=== PATIENT | female | born 1955 | race Caucasian/White ===

== ENCOUNTER 2025-03-05 08:14 | Emergency (ER) | payer OTHER ==
--- NOTE | 2025-03-05 09:28 | RAD REPORT ---
EXAMINATION: CT LUMBAR SPINE WITHOUT CONTRAST CLINICAL INDICATION: Female, 70 years old. PAIN TECHNIQUE: Axial CT images were obtained through the lumbar spine in soft tissue and bone windows wit hout intravenous contrast. Coronal and Sagittal reformatted images were created from the data set. One or more of the following dose reduction techniques were used: Automated exposure control, adjustm ent of the mA and/ or kV according to patient size, and/or iterative reconstruction. Unless otherwise specified, incidental findings do not require dedicated imaging follow-up. COMPARISON: CT abdomen and pelvis 06/11/2024 FINDINGS: For purposes of this dictation, it is assumed that there are 5 non rib-bearing lumbar type vertebrae, and the most caudal fully segmented lumbar vertebra is labeled L5. ALIGNMENT: The lumbar spine demonstrates normal alignment without scoliosis or spondylolisthesis. BONES: Vertebral body heights are preserved. No aggressive osseous lesions. DISCS: Intervertebral disc space heights are maintained. LEVELS: No significant spinal canal stenosis. Mild disc bulges at L3-4 through L5-S1, contributing to mild bilateral neural foraminal narrowing at L4-5. SOFT TISSUE: Cholesterol containing 2.2 cm gallstone. Mild distal colonic diverticulosis with sequela e of partial distal colon resection. No other soft tissue abnormalities. IMPRESSION: No acute lumbar spine abnormalities. Mild discogenic changes most notably at L4-5 contributing to mil d bilateral neural foraminal narrowing. Incidentally noted 2.2 cm cluster containing gallstone.
[2025-03-05 09:37] LABS: Absolute Eosinophils 0.1 K/uL (0-0.5); Absolute Lymphocytes (CBC) 1.8 K/uL (0.7-4.9); Absolute Monocytes 0.7 K/uL (0.1-1.3); Absolute Neutrophil 6.2 K/uL (1.8-8.0); Basophils % 0.5 % (0-1.3); Eosinophils % 1.6 % (0-4.4); Hematocrit 48.3 % (36.0-45.0); Hemoglobin 16.5 g/dL (12.0-15.0); Lymphocytes % 20.2 % (15.3-44.8); MCH 34.7 pg (27.0-35.0); MCHC 34.1 g/dL (32.0-36.0); MCV 101.6 fL (80-100); MPV 12.2 fL (7.6-11.3); Monocytes % 7.7 % (3.3-12.3); Nucleated Red Blood Cells % 0.1 % (0-0); Platelets 41 thou/uL (152-406); RBC Red Blood Cell Count 4.75 M/uL (3.86-4.86); Red Cell Distribution Width 14.1 % (12.1-15.2)
[2025-03-05 09:39] LABS: Albumin 3.4 g/dL (3.4-5.0); Albumin/Globulin Ratio 0.9 (1.1-1.8); Anion Gap 8.8 mEq/L (5.0-15.0); Bilirubin Total 0.9 mg/dL (0.2-1.0); Globulin 3.6 g/dL (2.3-3.5); Potassium 3.8 mEq/L (3.5-5.1)
[2025-03-05] MEDS ORDERED: dexAMETHasone 10 MG/ML VIAL ONE (09:46)
[2025-03-05] MEDS ORDERED: ONDANSETRON 4 MG/2 ML VIAL ONE (09:46)
[2025-03-05] MEDS ORDERED: KETOROLAC 30 MG/ML INJ ONE (09:46)
[2025-03-05] MEDS ORDERED: DIAZEPAM 5 MG TABLET ONE (09:46)
[2025-03-05] MEDS ORDERED: NA CHLORIDE 0.9% 1,000 ML ONE (09:46)
--- NOTE | 2025-03-05 09:57 | EDPHYS ---
Physician Documentation [facility] Name: Ana Steward Age: 70 yrs Sex: Female : 1955 Arrival Date: 03/05/2025 Time: 08:14 Bed 19 Private MD: ED Physician Gavino Boyd HPI: 03/05 09:51 This 70 yrs old Female presents to ER via Ambulatory with complaints of lower juanita back pain, lower thoracic. 09:51 The patient presents with pain that is acute. The symptoms are located in the low back, juanita lumbar area. Onset: The symptoms/episode began/occurred 3 day(s) ago. The pain does not radiate. Associated signs and symptoms: The patient has no apparent associated signs or symptoms. The problem was sustained when lifting boxes, heavy object. Modifying factors: The patient symptoms are alleviated by remaining still. Severity of symptoms: At their worst the symptoms were moderate, in the emergency department the symptoms are unchanged. The patient has not experienced similar symptoms in the past. Historical: - Allergies: 08:30 No Known Allergies; ll1 - PMHx: 08:30 Depression; Diverticulitis; ll1 - PSHx: 08:30 None; ll1 - Immunization history:: Adult Immunizations up to date. - Infectious Disease History:: Denies. - Social history:: Smoking status: Patient denies any tobacco usage or history of. - Family history:: not pertinent. ROS: 09:51 Constitutional: Negative for fever, chills, and weight loss, Eyes: Negative for injury, juanita pain, redness, and discharge, ENT: Negative for injury, pain, and discharge, Neck: Negative for injury, pain, and swelling, Cardiovascular: Negative for chest pain, palpitations, and edema, Respiratory: Negative for shortness of breath, cough, wheezing, and pleuritic chest pain, Abdomen/GI: Negative for abdominal pain, nausea, vomiting, diarrhea, and constipation, : Negative for injury, bleeding, discharge, and swelling, MS/Extremity: Negative for injury and deformity, Skin: Negative for injury, rash, and discoloration, Neuro: Negative for headache, weakness, numbness, tingling, and seizure, Psych: Negative for depression, anxiety, suicide ideation, homicidal ideation, and hallucinations, Allergy/Immunology: Negative for hives, rash, and allergies, Endocrine: Negative for neck swelling, polydipsia, polyuria, polyphagia, and marked weight changes, Hematologic/Lymphatic: Negative for swollen nodes, abnormal bleeding, and unusual bruising, 09:51 Back: Positive for injury or acute deformity, pain at rest, pain with movement, of the lumbar area, Exam: :51 Constitutional: This is a well developed, well nourished patient who is awake, alert, juanita and in no acute distress. Head/Face: Normocephalic, atraumatic. Eyes: Pupils equal round and reactive to light, extra-ocular motions intact. Lids and lashes normal. Conjunctiva and sclera are non-icteric and not injected. Cornea within normal limits. Periorbital areas with no swelling, redness, or edema. ENT: Nares patent. No nasal discharge, no septal abnormalities noted. Tympanic membranes are normal and external auditory canals are clear. Oropharynx with no redness, swelling, or masses, exudates, or evidence of obstruction, uvula midline. Mucous membranes moist. Neck: Trachea midline, no thyromegaly or masses palpated, and no cervical lymphadenopathy. Supple, full range of motion without nuchal rigidity, or vertebral point tenderness. No Meningismus. Chest/axilla: Normal chest wall appearance and motion. Nontender with no deformity. No lesions are appreciated. Cardiovascular: Regular rate and rhythm with a normal S1 and S2. No gallops, murmurs, or rubs. Normal PMI, no JVD. No pulse deficits. Respiratory: Lungs have equal breath sounds bilaterally, clear to auscultation and percussion. No rales, rhonchi or wheezes noted. No increased work of breathing, no retractions or nasal flaring. Abdomen/GI: Soft, non-tender, with normal bowel sounds. No distension or tympany. No guarding or rebound. No evidence of tenderness throughout. Female : Normal external genitalia. Skin: Warm, dry with normal turgor. Normal color with no rashes, no lesions, and no evidence of cellulitis. MS/ Extremity: Pulses equal, no cyanosis. Neurovascular intact. Full, normal range of motion., bilateral aka Neuro: Awake and alert, GCS 15, oriented to person, place, time, and situation. Cranial nerves II-XII grossly intact. Motor strength 5/5 in all extremities. Sensory grossly intact. Cerebellar exam normal. Normal gait. Psych: Awake, alert, with orientation to person, place and time. Behavior, mood, and affect are within normal limits. 09:51 Back: pain, that is moderate, ROM is painful, with flexion, with extension, normal spinal alignment noted, CVA tenderness, is absent, muscle spasm, is appreciated in the lumbar area, left low back, left mid back, right mid back and right low back, Vital Signs: 08:29 BP 138 / 73; Pulse 94; Resp 17; Temp 98.6; Pulse Ox 95% on R/A; Weight 79.38 kg; Height ll1 5 ft. 7 in. ; Pain 08/22; 08:29 Body Mass Index 27.41 (79.38 kg, 170.18 cm) ll1 08:29 Pain Scale: Adult ll1 MDM: 08:27 Medical Screening Exam initiated juanita 09:53 Differential diagnosis: chronic back pain, Fatigue Fracture Osteoarthritis Osteoporosis juanita Scoliosis spinal injury, sprain, vertebral fracture. Data reviewed: vital signs, nurses notes, lab test result(s), radiologic studies, CT scan. Consideration of Admission/Observation Escalation of care including admission/observation considered. I considered the following discharge prescriptions or medication management in the emergency department Medications were administered in the Emergency Department. See MAR. Independent interpretation of the following test(s) in the Emergency Department CT Scan: My interpretation is ct lumbar. Test considered but Not performed: MRI: no mri spine. Historians other than the Patient: pt well informed. Care significantly affected by the following chronic conditions: depression, diverticulitis. 03/05 08:31 Order name: CBC with Diff [facility] 03/05 08:31 Order name: Comprehensive Metabolic Panel; Complete Time: :47 [facility] 03/05 09:44 Order name: CBC Smear Scan [facility] 03/05 08:31 Order name: CT Lumbar Spine Wo Con; Complete Time: :47 [facility] Administered Medications: 10:02 Drug: NS 0.9% IV 1000 ml IV at 1000 ml once; to be given as a bolus over 60 minutes iw Route: IV; Rate: 1000 ml; Site: left antecubital; 10:42 Follow up: IV Status: Completed infusion iw 10:02 Drug: Ketorolac IVP 30 mg IVP once Route: IVP; Site: left antecubital; iw 10:02 Drug: Ondansetron IVP 4 mg IVP once; over 2 minutes Route: IVP; Site: left antecubital; iw 10:02 Drug: Diazepam PO 10 mg PO once Route: PO; iw 10:02 Drug: Decadron - Dexamethasone IVP 10 mg IVP once Route: IVP; Site: left antecubital; iw 10:40 Follow up: Response: No adverse reaction iw 10:03 Not Given (Patient Refused): fentanyl (pf)50 mcg IVP once iw 10:03 Not Given (Patient Refused): ondansetron 4 mg IVP once; over 2 minutes iw Disposition Summary: 03/05/25 09:56 Discharge Ordered Notes: Location: Home juanita Problem: new juanita Symptoms: have improved juanita Condition: Stable juanita Diagnosis - Low back pain juanita - Strain of muscle and tendon of back wall of thorax juanita Followup: juanita - With: Private Physician - When: 2 - 3 days - Reason: Recheck today's complaints, Continuance of care, Re-evaluation by your physician Followup: junaita - With: Salty Clinton MD - When: 2 - 3 days - Reason: Recheck today's complaints, Re-evaluation by your physician Discharge Instructions: - Discharge Summary Sheet juanita - Acute Back Pain, Adult juanita - Musculoskeletal Pain juanita - Back Injury Prevention, [id number] [facility] Forms: - Medication Reconciliation Form [facility] - Antibiotic Education juanita - Prescription Opioid Use juanita - Patient Portal Instructions [facility] - Leadership Thank You Letter [facility] Prescriptions: - diclofenac sodium 50 mg Oral tablet, delayed release (enteric coated) - take 1 tablet ORAL route 3 times per day; 21 tablet; Refills: 0, Product [facility] Selection Permitted - methocarbamol 750 mg Oral tablet - take 1 tablet ORAL route every 6 hours; 28 tablet; Refills: 0, Product [facility] Selection Permitted - Tylenol-Codeine #3 300mg-30mg Oral tablet - take 2 tablets ORAL route every 6 hours As needed; 20 tablet; Refills: 0, [facility] Product Selection Permitted - Dexamethasone 4mg Oral tablet - take 1 tablet ORAL route daily for 4 days; 4 tablet; Refills: 0, Product [facility] Selection Permitted Signatures: Dispatcher [employer] Gavino Harris MD MD cha Williams, Irene, RN RN iw Raza Thompson RN RN ll1 Corrections: (The following items were deleted from the chart) 08:31 08:31 CBC+H.LAB.BRZ ordered. EDMS EDMS 08:31 COMPREHENSIVE METABOLIC PANEL+C.LAB.BRZ ordered. EDMS EDMS 08:31 Urinalysis+U.LAB.BRZ ordered. EDMS EDMS 08:31 Spine Lumbar Wo Con+CT.RAD.BRZ ordered. EDMS EDMS
--- NOTE | 2025-03-05 09:57 | ER ---
Nurse's Notes [facility] Name: Ana Steward Age: 70 yrs Sex: Female : 1955 Arrival Date: 03/05/2025 Time: 08:14 Bed 19 Private MD: Diagnosis: Low back pain;Strain of muscle and tendon of back wall of thorax Presentation: 03/05 08:29 Chief complaint: Patient states: Back pain since Monday. Coronavirus screen: Client ll1 denies travel out of the [place] in the last 14 days. At this time, the client does not indicate any symptoms associated with coronavirus-19. Ebola Screen: Patient denies travel to an Ebola-affected area in the 21 days before illness onset. Initial Sepsis Screen: Does the patient meet any 2 criteria? No. Patient's initial sepsis screen is negative. Does the patient have a suspected source of infection? No. Patient's initial sepsis screen is negative. Risk Assessment: Do you want to hurt yourself or someone else? Patient reports no desire to harm self or others. Onset of symptoms was March 03, 2025. 08:29 Method Of Arrival: Ambulatory ll1 08:29 Acuity: DIDIER 4 ll1 Triage Assessment: 08:31 General: Appears uncomfortable, Behavior is calm, cooperative, appropriate for age. ll1 Pain: Complains of pain in back Pain currently is 10 out of 10 on a pain scale. Quality of pain is described as aching, sharp. Musculoskeletal: Reports pain in back. Historical: - Allergies: 08:30 No Known Allergies; ll1 - PMHx: 08:30 Depression; Diverticulitis; ll1 - PSHx: 08:30 None; ll1 - Immunization history:: Adult Immunizations up to date. - Infectious Disease History:: Denies. - Social history:: Smoking status: Patient denies any tobacco usage or history of. - Family history:: not pertinent. Screenin:24 [facility] ED Fall Risk Assessment (Adult) History of falling in the last 3 months, iw including since admission Yes- single mechanical fall (1 pt) Confusion or Disorientation No (0 pts) Intoxicated or Sedated No (0 pts) Impaired Gait No (0 pts) Mobility Assist Device Used No (0 pt) Altered Elimination No (0 pt) Score/Fall Risk Level 0 - 2 = Low Risk Oriented to surroundings, Maintained a safe environment. Abuse screen: Denies threats or abuse. Denies injuries from another. Nutritional screening: No deficits noted. Tuberculosis screening: No symptoms or risk factors identified. Assessment: 08:30 General: Appears in no apparent distress. Behavior is calm, cooperative. Pain: iw Complains of pain in left subscapular area, right subscapular area, left mid back and right mid back. Neuro: Level of Consciousness is awake, alert, obeys commands, Oriented to person, place, time, situation, Moves all extremities. Cardiovascular: Patient's skin is warm and dry. Respiratory: Respiratory effort is even, unlabored, Respiratory pattern is regular, symmetrical. GI: Abdomen is flat. Derm: Skin is intact, is healthy with good turgor. Musculoskeletal: Range of motion: intact in all extremities. 09:30 Reassessment: Patient appears in no apparent distress at this time. Patient and/or iw family updated on plan of care and expected duration. Pain level reassessed. Patient is alert, oriented x 3, equal unlabored respirations, skin warm/dry/pink. Vital Signs: 08:29 BP 138 / 73; Pulse 94; Resp 17; Temp 98.6; Pulse Ox 95% on R/A; Weight 79.38 kg; Height ll1 5 ft. 7 in. ; Pain 10/10; 08:29 Body Mass Index 27.41 (79.38 kg, 170.18 cm) ll1 08:29 Pain Scale: Adult ll1 ED Course: 08:18 Patient arrived in ED. kb3 08:27 Gavino Boyd MD is Attending Physician. juanita 08:30 Triage completed. ll1 08:30 Patient has correct armband on for positive identification. Provided Education on: . iw 08:31 Arm band placed on Patient placed in an exam room, on a stretcher. ll1 08:42 CT Lumbar Spine Wo Con In Process Unspecified. EDMS 09:07 Inserted saline lock: 20 gauge in left antecubital area, using aseptic technique. ty Flushed with 10 mL NS. 09:42 Vanessa Rodney, JAZIEL is Primary Nurse. iw 09:56 Salty Clinton MD is Referral Physician. juanita 10:24 No provider procedures requiring assistance completed. IV discontinued, intact, iw bleeding controlled, No redness/swelling at site. Pressure dressing applied. Administered Medications: 10: Drug: NS 0.9% IV 1000 ml IV at 1000 ml once; to be given as a bolus over 60 minutes iw Route: IV; Rate: 1000 ml; Site: left antecubital; 10:42 Follow up: IV Status: Completed infusion iw 10: Drug: Ketorolac IVP 30 mg IVP once Route: IVP; Site: left antecubital; iw 10:02 Drug: Ondansetron IVP 4 mg IVP once; over 2 minutes Route: IVP; Site: left antecubital; iw 10: Drug: Diazepam PO 10 mg PO once Route: PO; iw 10: Drug: Decadron - Dexamethasone IVP 10 mg IVP once Route: IVP; Site: left antecubital; iw 10:40 Follow up: Response: No adverse reaction iw 10:03 Not Given (Patient Refused): fentanyl (pf)50 mcg IVP once iw 10:03 Not Given (Patient Refused): ondansetron 4 mg IVP once; over 2 minutes iw Medication: 08:30 VIS not applicable for this client. iw Outcome: 09:56 Discharge ordered by MD. grant 10:25 Discharged to home ambulatory, iw 10:25 Condition: good 10:25 Discharge instructions given to patient, Instructed on discharge instructions, follow up and referral plans. medication usage, Demonstrated understanding of instructions, follow-up care, medications, Prescriptions given X 4, 10:25 Patient left the ED. iw Signatures: Dispatcher [employer] Gavino Harris MD MD cha Williams, Irene, RN RN iw Raza Thompson RN RN ll1 Cara Mckeon RN RN kb3 Berny Sharp
[2025-03-05 10:32] VITALS: BP 138/73; TEMP 98.6; O2SAT 95
[2025-03-05 10:43] LABS: Blood Morphology Comment NOTED (NOT SEEN); Macrocytosis 1+; Platelet Estimate DECR; Platelets, Giant PRESENT; White Blood Cell Scan OK (OK)
== END 2025-03-05 10:25 | disposition home or self-care (01) ==
LOC: ER 08:14
DX: S29.012A Strain of muscle and tendon of back wall of thorax, initial encounter (principal)
CPT/HCPCS: 96361; 85025; 36415; 80053; 72131; 96375; 96374; 99284; J1100; J2405; J7030

== ENCOUNTER 2025-06-30 10:56 | Day surgery (SDC) | payer OTHER ==
[2025-06-26 08:48] LABS: Absolute Lymphocytes (CBC) 1.0 K/uL (0.7-4.9); Hematocrit 39.1 % (36.0-45.0); Hemoglobin 13.2 g/dL (12.0-15.0); MCH 33.4 pg (27.0-35.0); MCHC 33.9 g/dL (32.0-36.0); MCV 98.5 fL (80-100); MPV 12.5 fL (7.6-11.3); Nucleated RBC Absolute Count 0.0 (0-0); Nucleated Red Blood Cells % 0.0 % (0-0); RBC Red Blood Cell Count 3.97 M/uL (3.86-4.86); White Blood Count 7.80 thou/uL (4.3-10.9)
[2025-06-26 08:57] LABS: PT Prothrombin Time 21.9 SECONDS (10-13.0); PTT, Activated Partial Thromb 40.2 SECONDS (27.2-37.4); Protime INR 1.98
[2025-06-26 09:02] LABS: Anion Gap 8.1 mEq/L (5.0-15.0); BUN Blood Urea Nitrogen 9.0 mg/dL (7-18); Glucose Level 103.0 mg/dL (74-106); Potassium 4.1 mEq/L (3.5-5.1)
[2025-06-26 09:57] LABS: Blood Morphology Comment NOT SEEN (NOT SEEN); Platelets, Giant NOTED; White Blood Cell Scan OK (OK)
[2025-06-30] MEDS ORDERED: NA CHLORIDE 0.9% 500 ML ONE (10:58)
[2025-06-30] MEDS ORDERED: VERAPAMIL HCL 10 MG/4 ML VIAL IV ONE (11:33)
[2025-06-30] MEDS ORDERED: HEPA 1000U/500MLS 2,000 UNIT/1,000 ML BAG IV ONE (11:33)
[2025-06-30] MEDS ORDERED: ATROPINE SULF 1 MG/10 ML SYR IV ONE (11:33)
[2025-06-30] MEDS ORDERED: HEPARIN 10,000 UNIT/10 ML VIAL IV ONE (11:33)
[2025-06-30] MEDS ORDERED: LIDOCAINE 1% 20 ML MDV ONE (11:33)
[2025-06-30] MEDS ORDERED: HEPARIN 5000 UNIT/ML 1 ML VIAL ONE (11:33)
[2025-06-30] MEDS ORDERED: MIDAZOLAM HCL 2 MG/2 ML INJ ONE (11:37)
[2025-06-30] MEDS ORDERED: FENTANYL CITR 100 MCG/2 ML ONE (11:37)
[2025-06-30 13:18] VITALS: TEMP 98.2
--- NOTE | 2025-06-30 14:24 | OP ---
Date of Procedure: 06/30/2025 Surgeon: VICKI SARMIENTO Procedures Performed: 1. Selective coronary angiogram. 2. Left heart catheterization. Indication: Abnormal stress test. Access: Right radial artery 6-Cymraes closed with TR band. Complications: None. Bleeding: Less than 50 mL. Total Sedation Time: 45 minutes, used fentanyl and Versed. Description Of Procedure: After risks, benefits, and alternatives were explained, the patient agreed to procedure and signed informed consent. [facility]pped and draped in sterile fashion. Then, I accessed right radial artery using pediatric micropuncture kit, ultrasound guidance, placed a 6-Cymraes slender sheath, took 5-Cymraes [place] 4.0 cat heter over a J-wire into the aortic root across the aortic valve, measured the LVEDP. Pullback did n ot record any gradient. Then, recorded left main, took standard views, and then in the RCA, took sta ndard views and then removed the catheter and the sheath, placed TR band with good hemostasis. Findings: 1. Left main is normal. 2. LAD; ostial 50% stenosis and then mid after diagonal 2 takeoff, there is a long 50% stenosis. The rest of the LAD is normal. Normal diagonal branches. 3. Left circumflex; large vessel, normal, free of disease, normal OM branches. 4. RCA; it is a large vessel with proximal 40%. Rest of it is normal. 5. LVEDP is normal at 10 mmHg. Conclusion: Moderate coronary artery disease. Recommendation: Medical management. Repeat cardiac PET stress test in a year. SR/MODL Voice ID: [id number] Report ID: [id number]
[2025-06-30 14:48] VITALS: BP 160/65; O2SAT 92
== END 2025-06-30 14:30 | disposition home or self-care (01) ==
LOC: CCL 10:56
PROVIDERS: ATTEND Internal Medicine
DX: I25.10 Atherosclerotic heart disease of native coronary artery without angina pectoris (principal); I34.0 Nonrheumatic mitral (valve) insufficiency; I11.0 Hypertensive heart disease with heart failure; I50.9 Heart failure, unspecified; Z87.891 Personal history of nicotine dependence; Z79.01 Long term (current) use of anticoagulants; Z79.899 Other long term (current) drug therapy
CPT/HCPCS: 93005; 85025; 80048; 36415; 85610; 85730; 93458; 76937; C1893; Q9966; J1644 ×2; J2003; J2250; J3010; J7040; 99152; 99153; J0461

== ENCOUNTER 2025-08-09 18:52 | Inpatient (IN) | payer OTHER ==
[2025-08-09] MEDS ORDERED: NA CHLORIDE 0.9% 1,000 ML ONE (19:32)
[2025-08-09] MEDS ORDERED: ONDANSETRON 4 MG/2 ML VIAL ONE ×2 (19:32→21:01)
[2025-08-09] MEDS ORDERED: LORazepam 2 MG/ML VIAL ONE (19:47)
[2025-08-09 19:55] LABS: Absolute Lymphocytes (CBC) 0.8 K/uL (0.7-4.9); Hematocrit 39.9 % (36.0-45.0); Hemoglobin 13.5 g/dL (12.0-15.0); MCH 31.0 pg (27.0-35.0); MCHC 33.7 g/dL (32.0-36.0); MCV 91.8 fL (80-100); MPV 15.9 fL (7.6-11.3); Nucleated RBC Absolute Count 0.0 (0-0); Nucleated Red Blood Cells % 0.0 % (0-0); RBC Red Blood Cell Count 4.35 M/uL (3.86-4.86); White Blood Count 8.10 thou/uL (4.3-10.9)
[2025-08-09 19:58] LABS: Blood Morphology Comment NOT SEEN (NOT SEEN); White Blood Cell Scan OK (OK)
[2025-08-09 20:14] LABS: ALT/SGPT 19.0 U/L (13-56); AST/SGOT 14.0 U/L (15-37); Albumin 3.8 g/dL (3.4-5.0); Albumin/Globulin Ratio 1.0 (1.1-1.8); Alkaline Phosphatase 60.0 U/L (45-117); Anion Gap 9.7 mEq/L (5.0-15.0); BUN Blood Urea Nitrogen 13.0 mg/dL (7-18); Globulin 4.0 g/dL (2.3-3.5); Glucose Level 128.0 mg/dL (74-106); Lipase 29.0 U/L (13-75); Potassium 3.7 mEq/L (3.5-5.1)
[2025-08-09] MEDS ORDERED: PROMETHAZINE INJ 25 MG/ML AMP ONE (22:27)
--- NOTE | 2025-08-09 22:53 | EDPHYS ---
Physician Documentation [facility] Name: Ana Steward Age: 70 yrs Sex: Female : 1955 Arrival Date: 08/09/2025 Time: 18:52 Bed 14 Private MD: YARIEL HYLTON ED Physician Deonte Hartley HPI: 08/09 23:21 This 70 yrs old Female presents to ER via Ambulatory with complaints of Nausea/Vomiting.kb 23:21 Patient is a 70-year-old female who presents for nausea and vomiting that started this kb morning. Patient states she has been unable to tolerate anything by mouth. Denies abdominal pain, diarrhea, fever. Historical: - Allergies: 19:10 No Known Allergies; ha1 - Home Meds: 19:10 Eliquis oral [Active]; ha1 - PMHx: 19:10 Atrial fibrillation; Depression; Diverticulitis; ha1 - Immunization history:: Adult Immunizations up to date. - Infectious Disease History:: Denies. - Social history:: Smoking status: unknown. ROS: 23:21 Constitutional: As per HPI kb Exam: 23:21 Constitutional: This is a well developed, well nourished patient who is awake, alert, kb and in no acute distress. Head/Face: Normocephalic, atraumatic. ENT: Moist Mucous membranes Cardiovascular: Regular rate Respiratory: Respirations even and unlabored. No increased work of breathing. Talking in full sentences Abdomen/GI: Soft, non-tender. No distention Skin: Warm, dry with normal turgor. Normal color. MS/ Extremity: Pulses equal, no cyanosis. Neurovascular intact. Full, normal range of motion. Neuro: Awake and alert, GCS 15, oriented to person, place, time, and situation. Vital Signs: 19:00 BP 179 / 102; Pulse 81; Resp 18 S; Temp 97.1(T); Pulse Ox 95% on R/A; Weight 61.23 kg; ha1 Height 5 ft. 7 in. ; Pain 0/10; 19:30 BP 175 / 92; Pulse 75; Resp 20; Pulse Ox 100% on R/A; kj2 19:52 BP 125 / 92; Pulse 75; Resp 18; Pulse Ox 100% on R/A; kj2 20:38 BP 169 / 85; Pulse 75; Resp 20; Pulse Ox 97% ; kj2 21:13 BP 168 / 83; Pulse 83; Resp 20; Pulse Ox 98% on R/A; kj2 22:13 BP 141 / 95; Pulse 81; Resp 18; Pulse Ox 95% on R/A; kj2 22:22 BP 162 / 79; Pulse 88; Resp 20; Pulse Ox 96% on R/A; kj2 23:30 BP 158 / 81; Pulse 83; Resp 20; Pulse Ox 98% on 2 lpm NC; kj2 08/10 00:59 BP 159 / 93; Pulse 87; Resp 19; Pulse Ox 98% on 2 lpm NC; cp4 08/09 19:00 Body Mass Index 21.14 (61.23 kg, 170.18 cm) ha1 08/09 19:00 Pain Scale: Adult ha1 MDM: 08/09 19:00 Medical Screening Exam initiated kb 22:52 Data reviewed: vital signs, nurses notes. Consideration of Admission/Observation kb Patient was admitted/placed on observation. Escalation of care including admission/observation considered. Management of patient was discussed with the following: Hospitalist: DONTRELL Lynn accepts pt for admission under Dr Hartley. 23:20 Differential diagnosis: Nonspecific abd pain, gastritis, viral gastroenteritis, kb Dehydration, abnormal electrolytes, bowel obstruction. Test considered but Not performed: CT: CT scan abdomen pelvis considered and recommended multiple times, patient refused. Counseling: I had a detailed discussion with the patient and/or guardian regarding the historical points, exam findings, and any diagnostic results supporting the discharge/admit diagnosis, lab results, the need for further work-up and treatment in the hospital. Refusal of service: The patient/guardian displays adequate decision making capability and despite a detailed discussion of alternatives, benefits, risks, and consequences refuses: CT Scan. ED course: Patient still vomiting after interventions, will admit for intractable vomiting. 08/09 19:05 Order name: CBC with Diff; Complete Time: 19:58 kb 08/09 19:05 Order name: CMP; Complete Time: 20:19 kb 08/09 19:05 Order name: Lipase; Complete Time: 20:19 kb 08/09 19:58 Order name: CBC Smear Scan; Complete Time: 19:58 EDMS 08/09 23:59 Order name: CBC with Automated Diff EDMS 08/09 23:59 Order name: CBC with Automated Diff EDMS 08/09 23:59 Order name: CBC with Automated Diff EDMS 08/09 23:59 Order name: Comprehensive Metabolic Panel EDMS 08/09 23:59 Order name: Comprehensive Metabolic Panel EDMS 08/09 23:59 Order name: Comprehensive Metabolic Panel EDMS 08/09 23:59 Order name: Magnesium EDMS 08/09 23:59 Order name: Magnesium EDMS 08/09 23:59 Order name: Magnesium EDMS 08/09 19:05 Order name: IV Saline Lock; Complete Time: 19:39 kb 08/09 19:05 Order name: Labs collected and sent; Complete Time: 19:39 kb Administered Medications: 19:38 Drug: Ondansetron IVP 4 mg IVP once; over 2 minutes Route: IVP; Site: right antecubital;kj2 21:08 Follow up: Response: No adverse reaction kj2 19:38 Drug: NS 0.9% IV 1000 ml IV at 1 bolus Per protocol; to be given as a bolus over 60 kj2 minutes Route: IV; Rate: 1 bolus; Site: right antecubital; 21:07 Follow up: IV Status: Completed infusion; IV Intake: 1000ml kj2 19:50 Drug: Ativan IVP 0.5 mg IVP once Route: IVP; Site: right antecubital; kj2 21:07 Follow up: Response: No adverse reaction kj2 21:13 Drug: Ondansetron IVP 4 mg IVP once; over 2 minutes Route: IVP; Site: right antecubital;kj2 22:00 Follow up: Response: No adverse reaction kj2 22:32 Drug: Promethazine IM 25 mg IM once Route: IM; Site: left deltoid; kj2 08/10 00:00 Follow up: Response: No adverse reaction kj2 Disposition Summary: 08/09/25 22:52 Hospitalization Ordered Notes: Hospitalization Status: Observation kb Provider: Jarrell Hartley Location: Telemetry/MedSurg (observation) kb Condition: Stable kb Problem: new kb Symptoms: are unchanged kb Bed/Room Type: Standard kb Room Assignment: 422(08/09/25 23:57) rv1 Diagnosis - Nausea with vomiting, unspecified - Intractable kb - Thrombocytopenia, unspecified kb Forms: - Medication Reconciliation Form kb - SBAR form kb - Leadership Thank You Letter kb Addendum: 08/14/2025 07:07 Co-signature as Attending Physician, Deonte Hartley MD I reviewed the patient's care r n provided by the Advanced Practice Provider and agree with the diagnosis and treatment plan. Signatures: Dispatcher [employer] EDRenuka Guerrero, CHUTE PULLER-C CHUTE PULLER-Ckb Deonte Hartley MD MD rn Ayala, Heidy RN RN ha1 Caro Schwab rv1 Edda Smart RN RN kj2 Corrections: (The following items were deleted from the chart) 08/09 19:06 19:06 CBC+H.LAB.BRZ ordered. EDMS EDMS 19:06 19:06 COMPREHENSIVE METABOLIC PANEL+C.LAB.BRZ ordered. EDMS EDMS 19:06 19:06 LIPASE+C.LAB.BRZ ordered. EDMS EDMS 23:57 22:52 kb rv1
--- NOTE | 2025-08-09 22:53 | ER ---
Nurse's Notes [facility] Name: Ana Steward Age: 70 yrs Sex: Female : 1955 Arrival Date: 08/09/2025 Time: 18:52 Bed 14 Private MD: YARIEL HYLTON Diagnosis: Nausea with vomiting, unspecified-Intractable;Thrombocytopenia, unspecified Presentation: 08/09 19:00 Chief complaint: Patient states: NAUSEA AND VOMITING SINCE THIS MORNING. DENIES PAIN. ha1 19:00 Coronavirus screen: Client denies travel out of the [place] in the last 14 days. Ebola ha1 Screen: No symptoms or risks identified at this time. Initial Sepsis Screen: Does the patient meet any 2 criteria? No. Patient's initial sepsis screen is negative. Does the patient have a suspected source of infection? No. Patient's initial sepsis screen is negative. Risk Assessment: Do you want to hurt yourself or someone else? Patient reports no desire to harm self or others. Onset of symptoms was August 09, 2025. 19:00 Method Of Arrival: Ambulatory ha1 19:00 Acuity: DIDIER 3 ha1 Triage Assessment: 19:10 General: Appears uncomfortable, Behavior is cooperative. Pain: Denies pain. Neuro: ha1 Level of Consciousness is awake, alert, obeys commands, Oriented to person, place, time, situation. Cardiovascular: Capillary refill < 3 seconds Patient's skin is warm and dry. Respiratory: Airway is patent Respiratory effort is even, unlabored, Respiratory pattern is regular, symmetrical. GI: Abdomen is round non-distended, Reports nausea, vomiting. Historical: - Allergies: 19:10 No Known Allergies; ha1 - Home Meds: 19:10 Eliquis oral [Active]; ha1 - PMHx: 19:10 Atrial fibrillation; Depression; Diverticulitis; ha1 - Immunization history:: Adult Immunizations up to date. - Infectious Disease History:: Denies. - Social history:: Smoking status: unknown. Screenin:20 [facility] ED Fall Risk Assessment (Adult) History of falling in the last 3 months, kj2 including since admission No falls in past 3 months (0 pts) Confusion or Disorientation No (0 pts) Intoxicated or Sedated No (0 pts) Impaired Gait No (0 pts) Mobility Assist Device Used No (0 pt) Altered Elimination No (0 pt) Score/Fall Risk Level 0 - 2 = Low Risk Maintained a safe environment, Hourly rounding (assess needs \T\ fall precautionary measures) done. Abuse screen: Denies threats or abuse. Denies injuries from another. Nutritional screening: No deficits noted. Tuberculosis screening: No symptoms or risk factors identified. Assessment: 19:10 General: Appears in no apparent distress. Behavior is cooperative. Pain: Denies pain. kj2 Neuro: Level of Consciousness is awake, alert, obeys commands, Oriented to person, place, time, situation. Cardiovascular: Patient's skin is warm and dry. Respiratory: Airway is patent Respiratory effort is unlabored. GI: Reports nausea, vomiting. : No signs and/or symptoms were reported regarding the genitourinary system. 19:55 Reassessment: Patient appears in no apparent distress at this time. Patient and/or kj2 family updated on plan of care and expected duration. Pain level reassessed. 20:39 Reassessment: Patient appears in no apparent distress at this time. Patient and/or kj2 family updated on plan of care and expected duration. Pain level reassessed. 21:13 Reassessment: Patient appears in no apparent distress at this time. Patient and/or kj2 family updated on plan of care and expected duration. Pain level reassessed. 22:13 Reassessment: Patient appears in no apparent distress at this time. Patient and/or kj2 family updated on plan of care and expected duration. Pain level reassessed. Patient is alert, oriented x 3, equal unlabored respirations, skin warm/dry/pink. 22:24 Reassessment: Patient appears in no apparent distress at this time. Patient is alert, kj2 oriented x 3, equal unlabored respirations, skin warm/dry/pink. 23:30 Reassessment: Patient appears in no apparent distress at this time. Patient and/or kj2 family updated on plan of care and expected duration. Pain level reassessed. 08/10 00:06 Reassessment: Patient appears in no apparent distress at this time. No changes from cp4 previously documented assessment. Patient and/or family updated on plan of care and expected duration. Pain level reassessed. Patient is alert, oriented x 3, equal unlabored respirations, skin warm/dry/pink. GI: Abdomen is round non-distended, Bowel sounds present X 4 quads. Abd is soft and non tender X 4 quads. Reports nausea, vomiting. Vital Signs: 08/09 19:00 BP 179 / 102; Pulse 81; Resp 18 S; Temp 97.1(T); Pulse Ox 95% on R/A; Weight 61.23 kg; ha1 Height 5 ft. 7 in. ; Pain 0/10; 19:30 BP 175 / 92; Pulse 75; Resp 20; Pulse Ox 100% on R/A; kj2 19:52 BP 125 / 92; Pulse 75; Resp 18; Pulse Ox 100% on R/A; kj2 20:38 BP 169 / 85; Pulse 75; Resp 20; Pulse Ox 97% ; kj2 21:13 BP 168 / 83; Pulse 83; Resp 20; Pulse Ox 98% on R/A; kj2 22:13 BP 141 / 95; Pulse 81; Resp 18; Pulse Ox 95% on R/A; kj2 22:22 BP 162 / 79; Pulse 88; Resp 20; Pulse Ox 96% on R/A; kj2 23:30 BP 158 / 81; Pulse 83; Resp 20; Pulse Ox 98% on 2 lpm NC; kj2 08/10 00:59 BP 159 / 93; Pulse 87; Resp 19; Pulse Ox 98% on 2 lpm NC; cp4 08/09 19:00 Body Mass Index 21.14 (61.23 kg, 170.18 cm) ha1 08/09 19:00 Pain Scale: Adult [facility] ED Course: 08/09 18:53 Patient arrived in ED. am2 18:54 YARIEL HYLTON is Private Physician. am2 19:00 Renuka Browne F[facility]-C [facility] kb 19:00 Deonte Hartley MD is Attending Physician. kb 19:09 Edda Smart, JAZIEL is Primary Nurse. kj2 19:10 Triage completed. ha1 19:20 Patient has correct armband on for positive identification. Bed in low position. Call kj2 light in reach. Provided Education on: call light. 19:25 Inserted saline lock: 20 gauge in right antecubital area, using aseptic technique. kj2 Blood collected. Flushed with 10 mL NS. 22:52 Jarrell Hartley MD is Hospitalizing Provider. kb 08/10 00:05 Report given to JAZIEL Shabazz. kj2 00:06 No provider procedures requiring assistance completed. kj2 01:00 Patient admitted, IV remains in place. [facility] 01:17 Arm band placed on right wrist. Patient placed in waiting room. [facility] Administered Medications: 08/09 19:38 Drug: Ondansetron IVP 4 mg IVP once; over 2 minutes Route: IVP; Site: right antecubital;kj2 21:08 Follow up: Response: No adverse reaction kj2 19:38 Drug: NS 0.9% IV 1000 ml IV at 1 bolus Per protocol; to be given as a bolus over 60 kj2 minutes Route: IV; Rate: 1 bolus; Site: right antecubital; 21:07 Follow up: IV Status: Completed infusion; IV Intake: 1000ml kj2 19:50 Drug: Ativan IVP 0.5 mg IVP once Route: IVP; Site: right antecubital; kj2 21:07 Follow up: Response: No adverse reaction kj2 21:13 Drug: Ondansetron IVP 4 mg IVP once; over 2 minutes Route: IVP; Site: right antecubital;kj2 22:00 Follow up: Response: No adverse reaction kj2 22:32 Drug: Promethazine IM 25 mg IM once Route: IM; Site: left deltoid; kj2 08/10 00:00 Follow up: Response: No adverse reaction kj2 Medication: 00:08 VIS not applicable for this client. kj2 Intake: 08/09 21:07 IV: 1000ml; Total: 1000ml. kj2 Outcome: 22:52 Decision to Hospitalize by Provider. shawn 08/10 01:00 Discharged to [facility] Admitted to Med/surg accompanied by tech, via stretcher, room 422, with oxygen, with chart, Condition: stable Instructed on the need for admit, 01:18 Patient left the ED. [facility] Signatures: Renuka Browne, HOMER BARTHP-Flakita Valdivia am2 Dede Miranda, RN RN irvin1 Harika Valdes [facility] Edda Smart, JAZIEL RN kj2 Corrections: (The following items were deleted from the chart) 08/09 22:17 22:13 BP 141 / 95; Pulse 81bpm; Resp 18bpm; kj2 kj2
--- NOTE | 2025-08-09 23:58 | P.HP ---
Certification for Inpatient Patient admitted to: Observation Patient will require the following post-hospital care: None Practitioner: I am a practitioner with admitting privileges, knowledge of patient current condition, hospital course, and medical plan of care. Services: Services provided to patient in accordance with Admission requirements found in Title 42 Section 412.3 of the Code of Federal Regulations Patient History Date of Service: 08/09/25 Reason for admission: Nausea and vomiting. History of Present Illness: Patient is a [id number]-qgb female with past medical history of atrial fibrillation currently on amiodarone 200 mg p.o. twice daily, and Eliquis 5 mg p.o. twice daily, essential hypertension, depression, bronchitis, diverticulitis, who presents to the ER today complaining of nausea and vomiting nonbilious and nonbloody content with no associated abdominal pain. Patient states she started having nausea and vomiting this morning nonbilious and nonbloody content, states it continued throughout the day, and unable to tolerate p.o. intake which then prompted her to report to ER. While in the ER, patient denies of any abdominal pain, and during admission assessment I inquired from the patient if she has any abdominal pain she refused but she requested for pain medication. ER Provider had requested for CT of the abdomen, but the patient refused stating that she does not have any abdominal pain and as such it was not done. Patient bowel sounds present all 4 quadrants, soft, nontender palpation, and nondistended. Allergies No Known Allergies Allergy (Verified 06/26/25 08:24) Home Medications: Sertraline [Zoloft*] 100 mg PO DAILY 02/02/13 Trazodone HCl 300 mg PO BEDTIME 02/02/13 Ondansetron [Zofran (Odt)*] 4 mg PO Q6H PRN #20 tab 08/12/16 Tramadol HCl [Ultram] 50 mg PO Q8H PRN #20 tablet 08/12/16 Amiodarone HCl [Cordarone*] 200 mg PO BID 30 Days #60 tab 05/15/25 Apixaban [Eliquis] 5 mg PO BID 30 Days #60 tab 05/15/25 Metoprolol Tartrate [Lopressor*] 25 mg PO BID 6AM 6PM 30 Days #60 tab 05/15/25 Gabapentin [Neurontin] 100 mg PO TID 08/10/25 Tizanidine [Zanaflex] 4 mg PO TID 08/10/25 - Past Medical/Surgical History Diabetic: No -: depression -: bronchitis -: Sigmoid diverticulosis -: hysterectomy -: Hysterectomy -: Distal colectomy with colorectal anastomosis. -: Appendectomy - Family History Mother -: Hypertension, Cancer Sister -: Cancer - Social History Smoking Status: Never smoker Alcohol use: No CD- Drugs: No Caffeine use: Yes Place of Residence: Home Review of Systems 10-point ROS is otherwise unremarkable Gastrointestinal: Nausea, Vomiting Physical Examination - Physical Exam General: Alert, In no apparent distress, Oriented x3, Cooperative HEENT: Atraumatic, Normocephalic, PERRLA, Mucous membr. moist/pink Neck: Supple, 2+ carotid pulse no bruit, No LAD, Without JVD or thyroid abnormality Respiratory: Clear to auscultation bilaterally, Normal air movement Cardiovascular: No edema, Normal pulses, No gallops, No rubs, No murmurs, Irregular heart rate/rhythm (History of atrial fibrillation.) Capillary refill: <2 Seconds Gastrointestinal: Normal bowel sounds, Soft and benign, W/out hepatomegaly, No ascites, No tenderness, No masses, No rebound, No guarding Musculoskeletal: No clubbing, No swelling, No contractures, No erythema, No tenderness, No warmth Integumentary: No rashes, No breakdown, No significant lesion, No tenderness/swelling, No erythema, No warmth, No cyanosis Neurological: Normal gait, Normal speech, Normal strength at 5/5 x4 extr, Normal tone, Sensation intact, Cranial nerves 3-12 intact, Normal reflexes 2+, Normal affect Lymphatics: No axilla or inguinal lymphadenopathy - Studies Laboratory Data (last 24 hrs) 08/09/25 08/09/25 19:25 19:25 WBC 8.10 Hgb 13.5 Hct 39.9 Plt Count 33 L Sodium 138 Potassium 3.7 BUN 13 Creatinine 1.22 H Glucose 128 H Total Bilirubin 0.5 AST 14 L ALT 19 Alkaline Phosphatase 60 Lipase 29 Female Exam - Breasts Breasts: Normal configuration, Normal contours, Symmetrical Assessment and Plan - Plan Patient is a 70-year-old female who reports to ER complaint nausea and vomiting with no associated shortness of breath, chest pain, or abdominal pain. (1)Nausea and vomiting. -IV D5 NS at 75 mL an hour. Patient states she is not able to tolerate p.o. intake at this time. -Zofran 4 mg IV every 6 as needed. (2)Chronic atrial fibrillation. -Continue home medication amiodarone 200 mg p.o. twice daily. -Continue Eliquis 5 mg p.o. twice daily. (3)Chronic hypertension. -25 mg p.o. twice daily. (4)Chronic depression. -Continue sertraline 100 mg p.o. daily. (5)Explained entire treatment plan to the patient, solicited questions answered and voiced understanding. Discharge Plan: Home Plan to discharge in: 48 Hours - Advance Directives Does patient have a Living Will: Yes Does patient have a Durable POA for Healthcare: No - Code Status/Comfort Care Code Status Assessed: Yes Code Status: Full Code Critical Care: No Time Spent Managing Pts Care (In Minutes): 55
[2025-08-10] MEDS: D5 0.9 NS 1,000 ML IV SCH (01:27)
[2025-08-10] MEDS: ONDANSETRON 4 MG/2 ML VIAL IV PRN (01:27)
[2025-08-10 04:40] LABS: Absolute Lymphocytes (CBC) 0.5 K/uL (0.7-4.9); Hematocrit 41.2 % (36.0-45.0); Hemoglobin 13.5 g/dL (12.0-15.0); MCH 30.4 pg (27.0-35.0); MCHC 32.7 g/dL (32.0-36.0); MCV 92.9 fL (80-100); MPV 16.0 fL (7.6-11.3); Nucleated RBC Absolute Count 0.0 (0-0); Nucleated Red Blood Cells % 0.0 % (0-0); RBC Red Blood Cell Count 4.44 M/uL (3.86-4.86); White Blood Count 16.00 thou/uL (4.3-10.9)
[2025-08-10 04:56] LABS: ALT/SGPT 20.0 U/L (13-56); AST/SGOT 16.0 U/L (15-37); Albumin 3.5 g/dL (3.4-5.0); Albumin/Globulin Ratio 0.9 (1.1-1.8); Alkaline Phosphatase 59.0 U/L (45-117); Anion Gap 11.7 mEq/L (5.0-15.0); BUN Blood Urea Nitrogen 11.0 mg/dL (7-18); Globulin 3.7 g/dL (2.3-3.5); Glucose Level 161.0 mg/dL (74-106); Magnesium 1.8 mg/dL (1.6-2.4); Potassium 3.7 mEq/L (3.5-5.1)
[2025-08-10] MEDS: METOPROLOL TAR 25 MG TAB PO SCH (06:00)
[2025-08-10] MEDS: TRAMADOL HCL 50 MG TAB PO PRN (06:45)
--- NOTE | 2025-08-10 08:27 | P.PN ---
Date of Service: 08/10/25 Subjective: continues with nausea/vomiting overnight and this morning hasn't been able to keep much down reports intractable nausea/vomiting that started yesterday. +Abdominal pain started after nausea/vomiting initially refusing CT scan - Pt frustrated because she has gotten multiple CTs in the past and she doesn't think it'll show anything discussed since this is new issue and rising WBC, it would be best to get one, agreeable reports not taking some of her home meds yesterday including tizanidine Physical Exam: GEN: Alert, oriented, NAD CV: Regular rate and rhythm, no edema Pulm: Nonlabored respirations on 2L NC, diminished ABD: soft, mild tenderness, nondistended Neuro: Normal speech, normal affect Problem List: Intractable nausea/vomiting Abdominal pain T12 compression fracture, acute vs subacute A-fib Hypertension Depression Hx diverticulitis Hx of ITP (~2 months ago) Hx of PE Intractable nausea/vomiting Abdominal pain on admission, reports intractable nausea/vomiting that started yesterday. +Abdominal pain started after N/V Adamantly refusing CT in ED and this morning. Agreeable to CT after discussion. CT abd/pelvis noted acute vs subacute t12 superior endplate compression deformity. Mild edematous changes in the lower lungs. Bilateral small pleural effusions deescalate to clear liquid diet add PPI pain control, IV fluids PRN antiemetics T12 compression fracture, acute vs subacute CT noted acute vs subacute t12 superior endplate compression deformity. has been taking Tizanidine for a few months for chronic back pain since fall in March didn't take most of her home medications yesterday pain control A-fib Hypertension Depression confirm home meds, restart as appropriate Hx of ITP Hx of PE (~2 months ago) Plt low in 30s. PE 05/09/25 -provoked - had cholecystectomy / hospitalization Hold Lovenox/Eliquis for now until plt >50k start prednisone 1mg/kg daily, titrate over next [address] Zhao Daily labs VTE: Hold eliquis Code: Full Dispo: Home Pending improvement, tolerating diet Time Spent Managing Pts Care (In Minutes): 55
[2025-08-10] MEDS ORDERED: APIXABAN 5 MG TABLET PO SCH (09:00)
[2025-08-10] MEDS ORDERED: ENOXAPARIN 40 MG/0.4 ML SQ SCH (09:00)
[2025-08-10] MEDS: PANTOPRAZOLE 40 MG INJ IVP SCH (10:26)
[2025-08-10] MEDS: TIZANIDINE 4 MG TABLET PO SCH (10:26)
[2025-08-10] MEDS: AMIODARONE HCL 200 MG TAB PO SCH (10:26)
--- NOTE | 2025-08-10 10:26 | RAD REPORT ---
EXAMINATION: CT Abdomen Pelvis W Contrast CLINICAL INDICATION: Female, 70 years old. intractable nausea/vomiting, epigastric pain TECHNIQUE: CT abdomen and pelvis was performed, after the administration of IV contrast, as per [facility] protocol. Axial, sagittal and coronal reconstructions were obtained. One or more of the following dose reduction techniques were used: Automated exposure control, adjustment of the mA and k V according to patient size, and iterative reconstruction. Unless otherwise specified, incidental findings do not require dedicated imaging follow-up. COMPARISON: 05/03/2025 CT abdomen and pelvis. 05/09/2025 CT chest FINDINGS: LOWER CHEST: Small bilateral pleural effusions larger on the right. Interlobular septal thickening co uld indicate mild pulmonary edema. LIVER: Normal in size and contour. No focal lesion. BILIARY SYSTEM: Status post cholecystectomy. SPLEEN: Normal size. No focal lesion. PANCREAS: No mass, ductal dilation, or navjot-pancreatic fluid. ADRENALS: Stable small left adrenal 1.4 cm nodule. KIDNEYS: Normal size and contour. Subcentimeter cortical lesions, could represent small cysts, diffic ult to characterize No hydronephrosis. URINARY BLADDER: Unremarkable. GASTROINTESTINAL TRACT: No evidence of free air, significant intra-abdominal free fluid, bowel obstru ction or abscess. Postsurgical changes of partial bowel resection APPENDIX: Appendix not visualized, but no inflammatory changes in region of appendix. LYMPH NODES: No lymphadenopathy. MUSCULOSKELETAL: Superior endplate compression deformity at T12, new. ADDITIONAL FINDINGS: Postsurgical changes of right anterior abdominal wall hernia repair. IMPRESSION: Superior endplate compression deformity at T12, could be acute or subacute as it is new since the Apr exams. Mild edematous changes in the lower lungs. Bilateral small pleural effusions, improved since the prio r CT chest
[2025-08-10] MEDS: SERTRALINE HCL 100 MG TAB PO SCH (10:27)
[2025-08-10] MEDS: GABAPENTIN 100 MG CAP PO SCH (10:27)
[2025-08-10] MEDS ORDERED: HYDROCODONE/APAP 5/325 MG TAB PO PRN (11:17)
[2025-08-10] MEDS: MORPHINE 2 MG/ML SYR IV PRN (11:59)
[2025-08-10] MEDS: PIPER TAZO 3.375 GM in NA CHLORIDE 0.9% 100 ML IV SCH (13:34)
[2025-08-10] MEDS: predniSONE 20 MG TAB PO ONE (14:35)
[2025-08-10] MEDS: Ringers Lactate 500 ML IV ONE (17:07)
[2025-08-10 19:55] LABS: Absolute Lymphocytes (CBC) 0.5 K/uL (0.7-4.9); Hematocrit 34.8 % (36.0-45.0); Hemoglobin 11.5 g/dL (12.0-15.0); MCH 30.9 pg (27.0-35.0); MCHC 33.1 g/dL (32.0-36.0); MCV 93.4 fL (80-100); MPV 14.8 fL (7.6-11.3); Nucleated RBC Absolute Count 0.0 (0-0); Nucleated Red Blood Cells % 0.1 % (0-0); RBC Red Blood Cell Count 3.73 M/uL (3.86-4.86); White Blood Count 11.60 thou/uL (4.3-10.9)
[2025-08-10] MEDS: ALBUMIN HUMAN 25% 100 ML IV ONE (19:55)
[2025-08-10 20:00] LABS: ALT/SGPT 19.0 U/L (13-56); Albumin 2.8 g/dL (3.4-5.0); Albumin/Globulin Ratio 0.9 (1.1-1.8); Alkaline Phosphatase 43.0 U/L (45-117); Anion Gap 7.2 mEq/L (5.0-15.0); BUN Blood Urea Nitrogen 12.0 mg/dL (7-18); Globulin 3.1 g/dL (2.3-3.5); Glucose Level 128.0 mg/dL (74-106)
[2025-08-10 20:01] LABS: AST/SGOT 26.0 U/L (15-37); Magnesium 1.9 mg/dL (1.6-2.4); Potassium 4.2 mEq/L (3.5-5.1)
[2025-08-10] MEDS: NA CHLORIDE 0.9% 500 ML ONE (22:39)
[2025-08-10] MEDS: NA CHLORIDE 0.9% 500 ML IV ONE (22:48)
[2025-08-10] MEDS: NOREPINEPHRINE BITARTRATE/D5W 4 MG/250 ML KIT IV ONE (23:33)
[2025-08-10] MEDS: NOREPINEPHRINE 4 MG in D5W 250 ML IV SCH (23:46)
[2025-08-10] MEDS: TRAZODONE 150 MG TAB PO SCH (23:47)
[2025-08-11 06:34] LABS: Absolute Lymphocytes (CBC) 0.9 K/uL (0.7-4.9); Hematocrit 33.6 % (36.0-45.0); Hemoglobin 11.1 g/dL (12.0-15.0); MCH 31.0 pg (27.0-35.0); MCHC 33.2 g/dL (32.0-36.0); MCV 93.2 fL (80-100); MPV 15.5 fL (7.6-11.3); Nucleated RBC Absolute Count 0.0 (0-0); Nucleated Red Blood Cells % 0.1 % (0-0); RBC Red Blood Cell Count 3.60 M/uL (3.86-4.86); White Blood Count 11.80 thou/uL (4.3-10.9)
[2025-08-11 07:18] LABS: ALT/SGPT 20.0 U/L (13-56); AST/SGOT 22.0 U/L (15-37); Albumin 3.2 g/dL (3.4-5.0); Albumin/Globulin Ratio 1.0 (1.1-1.8); Alkaline Phosphatase 39.0 U/L (45-117); Anion Gap 8.6 mEq/L (5.0-15.0); BUN Blood Urea Nitrogen 11.0 mg/dL (7-18); Globulin 3.1 g/dL (2.3-3.5); Glucose Level 159.0 mg/dL (74-106); Magnesium 1.9 mg/dL (1.6-2.4); Potassium 3.6 mEq/L (3.5-5.1)
[2025-08-11] MEDS: NA CHLORIDE 0.9% 500 ML IV ONE ×2 (07:50→08:55)
--- NOTE | 2025-08-11 08:09 | P.PN ---
Date of Service: 08/11/25 Subjective: no further nausea per patient BP low yesterday, improving remains on low dose levophed Oxygen increased after patient started to desat on 3-4L Physical Exam: GEN: Alert, oriented, NAD CV: Regular rate and rhythm, no edema Pulm: Nonlabored respirations on 10L NC, diminished ABD: soft, mild tenderness, nondistended Neuro: Normal speech, normal affect Problem List: Hypotension, unclear etiology Moderate CAD; recent [facility] (06/30/25) NSTEMI Acute pulmonary edema Intractable nausea/vomiting, resolved Abdominal pain T12 compression fracture, acute vs subacute A-fib Hypertension Depression Hx diverticulitis Hx of ITP (~2 months ago) Hx of PE Hypotension, unclear etiology Unclear etiology. Possibly related to volume loss BP via machine reading 50s/30-40s yesterday Patient was awake/alert during readings, reports some slight fatigue; "woozy" when she sat up Also states she got up to bathroom without issue Transferred to ICU for close monitoring Started on low dose levophed yesterday. BP improving; wean pressors Dr. Yadav, pulm consulted Moderate CAD; recent [facility] (06/30/25) NSTEMI Acute pulmonary edema Initial troponin 850. Trend troponins until peak Most recent echo 05/09/25 with Normal EF, wall motion and diastolic function. Did note moderate pulmonary hypertension, moderate TR. Had [facility] 06/30/[address] Kiran which noted moderate CAD; no PCI done. (LAD: 50% Ostial stenosis and then mid after diagonal 2 takeoff, there is a long 50% stenosis. +40% proximal RCA stenosis) CXR with widespread interstitial and airspace disease likely representing pulm onary edema though multifocal pneumonia would be difficult to exclude radiographically. CT abd/pelvis showed small b/l pleural effusions L > R yesterday. +Interlobular septal thickening could indicate mild pulmonary edema given IV albumin yesterday, and multiple 500mL IVF bolus last 24 hrs Monitor on telemetry check EKG, trop Cardiology consulted Echo ordered to eval EF / stenosis Intractable nausea/vomiting, resolved Abdominal pain on admission, reports intractable nausea/vomiting that started yesterday. +Abdominal pain started after N/V CT abd/pelvis noted acute vs subacute t12 superior endplate compression deformity. Mild edematous changes in the lower lungs. Bilateral small pleural effusions advance to full liquids No further nausea per patient pain control, IV fluids, IV PPI PRN antiemetics T12 compression fracture, acute vs subacute CT noted acute vs subacute t12 superior endplate compression deformity. has been taking Tizanidine for a few months for chronic back pain since fall in March pain control A-fib Hypertension Depression confirm home meds, restart as appropriate Hx of ITP Hx of PE (~2 months ago) Monitor plt closely. slightly improved compared to few days ago PE 05/09/25 -provoked - had cholecystectomy / hospitalization Hold Lovenox/Eliquis for now until plt >50k Continue prednisone 1mg/kg daily, titrate over next [address] Zhao - discussed over phone Daily labs VTE: Hold eliquis Code: Full Dispo: Home Pending BP stable, off pressors, plt okay, cardio recs Continue ICU level of care I have personally spent 40 min of critical care time, in evaluation and management of this critically ill patient's condition requiring high use of high risk/critical medication
[2025-08-11] MEDS: predniSONE 20 MG TAB PO SCH (08:56)
[2025-08-11] MEDS: POTASSIUM CL SA 10 MEQ TAB PO ONE (08:57)
--- NOTE | 2025-08-11 10:54 | RAD REPORT ---
EXAM: Chest Single View HISTORY: 70 years Female SOB, incrased crackles COMPARISON: 05/12/2025 FINDINGS: LUNGS/PLEURA: Widespread bilateral interstitial and airspace disease. Bilateral pleural effusions. CARDIAC/MEDIASTINUM: The cardiac silhouette is within normal limits. Enlarged main pulmonary arteries suspected. UPPER ABDOMEN: No significant abnormality. BONES: No acute abnormality. LINES/TUBES/OTHER: N/A IMPRESSION: Widespread interstitial and airspace disease likely representing pulmonary edema though multifocal pn eumonia would be difficult to exclude radiographically.
--- NOTE | 2025-08-11 12:40 | P.CNS ---
Date of Consult: 08/11/25 Reason for Consult: Nausea vomiting hypotension respiratory distress Chief Complaint: Nausea and vomiting. History of Present Illness: Patient is 70 years of age admitted with acute onset of nausea vomiting apparently she attended a barbecue constitution party denies any diarrhea is feeling much better is also hypotensive no prior history of any abdominal complaints no prior history of nausea and vomiting she is doing much better denies any pulmonary complaints However by this afternoon patient started having more dyspnea chest x-ray looked worse and is now on high flow oxygen Allergies No Known Allergies Allergy (Verified 06/26/25 08:24) Home Medications: Trazodone HCl 300 mg PO BEDTIME 02/02/13 Ondansetron [Zofran (Odt)*] 4 mg PO Q6H PRN #20 tab 08/12/16 Tramadol HCl [Ultram] 50 mg PO Q8H PRN #20 tablet 08/12/16 Amiodarone HCl [Cordarone*] 200 mg PO BID 30 Days #60 tab 05/15/25 Apixaban [Eliquis] 5 mg PO BID 30 Days #60 tab 05/15/25 Gabapentin [Neurontin] 100 mg PO TID 08/10/25 Tizanidine [Zanaflex] 4 mg PO TID 08/10/25 - Past Medical/Surgical History Diabetic: No -: depression -: bronchitis -: Sigmoid diverticulosis -: hysterectomy -: Hysterectomy -: Distal colectomy with colorectal anastomosis. -: Appendectomy - Family History Mother Medical History: Hypertension, Cancer Sister Medical History: Cancer - Social History Smoking Status: Unknown if ever smoked Alcohol use: No CD- Drugs: No Caffeine use: Yes Place of Residence: Home Review of Systems 10-point ROS is otherwise unremarkable Physical Examination Temp Pulse Resp BP Pulse Ox 97.2 F 92 H 22 H 116/73 92 08/11/25 07:00 08/11/25 11:45 08/11/25 11:45 08/11/25 11:45 08/11/25 11:45 General: Alert, Oriented x3 HEENT: Atraumatic Neck: Supple Respiratory: Clear to auscultation bilaterally Cardiovascular: Regular rate/rhythm Gastrointestinal: Normal bowel sounds, Soft and benign, Non-distended - Problems (1) Hypotension Current Visit: Yes Status: Acute Plan: Patient is 70 years of age admitted with hypotension presumed secondary to nausea and vomiting doing much better she just recently attended a [employer] lunch labs chemistries reviewed troponin elevated patient to be weaned off Levophed Patient has a history of A-fib and is on amiodarone and Eliquis (2) Thrombocytopenia Current Visit: No Status: Acute Plan: Patient has chronic idiopathic thrombocytopenia her platelets have been intermittently low D/c Zosyn and IV steroids (3) Respiratory distress Current Visit: Yes Status: Acute Plan: Patient has now developed respiratory distress worsening changes on her x-ray requiring higher concentrations of oxygen developed acute lung injury Lasix and Levophed
[2025-08-11] MEDS: ENOXAPARIN 60 MG/0.6 ML SQ SCH (12:44)
[2025-08-11 13:29] LABS: Arterial Blood Carboxyhemoglob 2.3 % (0.0-1.5); Blood Gas Inspired Oxygen 50.0 %; Blood Gas Oxyhemoglobin 77.4 % (94.0-97.0); Blood O2 Saturation 77.1 % (92.0-98.5)
[2025-08-11] MEDS: FUROSEMIDE 40 MG/4 ML VIAL IV ONE (13:48)
--- NOTE | 2025-08-11 16:53 | P.CNS ---
Date of Consult: 08/11/25 Chief Complaint: Nausea and vomiting. History of Present Illness: Patient with PMH of Mild CAD, AF, presented with nausea and vomiting, denies chest pain, no palpitations, no syncope, cardiology were consulted for elevated troponin, patient also has been SOB with low BP. Allergies No Known Allergies Allergy (Verified 06/26/25 08:24) Home medications list reviewed: Yes Home Medications: Trazodone HCl 300 mg PO BEDTIME 02/02/13 Ondansetron [Zofran (Odt)*] 4 mg PO Q6H PRN #20 tab 08/12/16 Tramadol HCl [Ultram] 50 mg PO Q8H PRN #20 tablet 08/12/16 Amiodarone HCl [Cordarone*] 200 mg PO BID 30 Days #60 tab 05/15/25 Apixaban [Eliquis] 5 mg PO BID 30 Days #60 tab 05/15/25 Gabapentin [Neurontin] 100 mg PO TID 08/10/25 Tizanidine [Zanaflex] 4 mg PO TID 08/10/25 - Past Medical/Surgical History Diabetic: No -: depression -: bronchitis -: Sigmoid diverticulosis -: hysterectomy -: Hysterectomy -: Distal colectomy with colorectal anastomosis. -: Appendectomy - Family History Mother Medical History: Hypertension, Cancer Sister Medical History: Cancer - Social History Smoking Status: Unknown if ever smoked Alcohol use: No CD- Drugs: No Caffeine use: Yes Place of Residence: Home Review of Systems 10-point ROS is otherwise unremarkable Physical Examination Temp Pulse Resp BP Pulse Ox 97.5 F 57 15 98/60 100 08/11/25 16:00 08/11/25 16:00 08/11/25 16:00 08/11/25 16:08/11/25 16:00 General: Alert, In no apparent distress HEENT: Atraumatic, PERRLA, Mucous membr. moist/pink, EOMI, Sclerae nonicteric Neck: Supple, 2+ carotid pulse no bruit, No LAD, Without JVD or thyroid abnormality Respiratory: Clear to auscultation bilaterally, Normal air movement Cardiovascular: Regular rate/rhythm, Normal S1 S2 Gastrointestinal: Normal bowel sounds, No tenderness Musculoskeletal: No tenderness Integumentary: No rashes Neurological: Normal gait, Normal speech, Normal tone, Normal affect Lymphatics: No axilla or inguinal lymphadenopathy - Problems (1) NSTEMI (non-ST elevated myocardial infarction) Current Visit: Yes Status: Acute Plan: Patient with recent coronary angigoram shown mild to moderate mid LAD disease. repeated echo show normal EF and kowalski motion troponin mild elevated which can be type2 [place], continue to trend, patient is chest pain free continue ASA 81 mg daily recommend Heparin drip while patient is off blood thinner and troponin leak is down trending. continue to monitor on tele (2) Respiratory distress Current Visit: Yes Status: Acute Plan: recommend lasix 20 mg IV BID. Echo show normal IVC but patient is getting fluids and CXR with picture of congestion vs PNA continue to monitor input and output and electrolytes. (3) Atrial fibrillation Current Visit: No Status: Acute Plan: continue Amiodarone [address] patient on heparin drip while Eliquis is on hold. continue to monitor on tele
--- NOTE | 2025-08-11 17:04 | RAD REPORT ---
Procedure: Chest Single View HISTORY: PICC line placement FINDINGS: A PICC line has been inserted and its tip in the mid superior vena cava
[2025-08-11] MEDS: METHYLPREDNISOLONE 40 MG INJ IV SCH (17:48)
[2025-08-11] MEDS: Mupirocin NASAL 2 APPL/1 GM TUBE NAS SCH (21:01)
[2025-08-12] MEDS: NOREPINEPHRINE BITARTRATE/D5W 4 MG/250 ML BAG IV SCH (02:07)
[2025-08-12 06:49] LABS: Absolute Lymphocytes (CBC) 0.7 K/uL (0.7-4.9); Hematocrit 31.9 % (36.0-45.0); Hemoglobin 10.7 g/dL (12.0-15.0); MCH 30.7 pg (27.0-35.0); MCHC 33.6 g/dL (32.0-36.0); MCV 91.5 fL (80-100); MPV 14.0 fL (7.6-11.3); Nucleated RBC Absolute Count 0.0 (0-0); Nucleated Red Blood Cells % 0.1 % (0-0); RBC Red Blood Cell Count 3.49 M/uL (3.86-4.86); White Blood Count 13.40 thou/uL (4.3-10.9)
[2025-08-12 07:05] LABS: ALT/SGPT 18.0 U/L (13-56); AST/SGOT 20.0 U/L (15-37); Albumin 2.9 g/dL (3.4-5.0); Albumin/Globulin Ratio 1.0 (1.1-1.8); Alkaline Phosphatase 35.0 U/L (45-117); Anion Gap 7.6 mEq/L (5.0-15.0); BUN Blood Urea Nitrogen 11.0 mg/dL (7-18); Globulin 3.0 g/dL (2.3-3.5); Glucose Level 129.0 mg/dL (74-106); Magnesium 1.6 mg/dL (1.6-2.4); Potassium 3.6 mEq/L (3.5-5.1)
[2025-08-12] MEDS: FUROSEMIDE 20 MG/ 2ML VIAL IV SCH (08:16)
[2025-08-12] MEDS: POTASSIUM CL SA 10 MEQ TAB PO ONE (08:18)
[2025-08-12] MEDS: CEFTRIAXONE 1,000 MG in NA CHLORIDE 0.9% 50 ML IVPB SCH (08:18)
[2025-08-12] MEDS: MAGNESIUM SULFATE 1 gm IVPB 1 GM/100 ML BAG IV ONE (08:19)
[2025-08-12 08:35] LABS: Platelets, Giant PRESENT; White Blood Cell Scan OK (OK)
[2025-08-12 08:36] LABS: Blood Morphology Comment NOT SEEN (NOT SEEN)
--- NOTE | 2025-08-12 09:53 | P.PN ---
Subjective Date of Service: 08/12/25 Chief Complaint: Nausea and vomiting. Subjective: No new changes, No C/O voiced, Tolerating diet, Improving Review of Systems 10-point ROS is otherwise unremarkable Physical Examination - Vital Signs Temperature: 97.5 F Blood Pressure: 101/54 Pulse: 55 Respirations: 17 Pulse Ox (%): 92 - Physical Exam General: Alert, In no apparent distress HEENT: Atraumatic, PERRLA, EOMI Neck: Supple, JVD not distended Respiratory: Clear to auscultation bilaterally, Normal air movement Cardiovascular: Regular rate/rhythm, Normal S1 S2 Gastrointestinal: Normal bowel sounds, No tenderness Musculoskeletal: No tenderness Integumentary: No rashes Neurological: Normal speech, Normal tone, Normal affect Lymphatics: No axilla or inguinal lymphadenopathy - Studies Medications List Reviewed: Yes Assessment And Plan - Current Problems (Diagnosis) (1) NSTEMI (non-ST elevated myocardial infarction) Current Visit: Yes Status: Acute Plan: Patient with recent coronary angigoram shown mild to moderate proximal to mid LAD disease. repeated echo show normal EF and kowalski motion troponin mild elevated and down trended, this is type 2 [place] continue ASA 81 mg daily resume patient Eliquis 5 mg po BID continue to monitor on tele (2) Respiratory distress Current Visit: Yes Status: Acute Plan: continue lasix 20 mg IV BID. Echo show normal IVC but patient is getting fluids and CXR with picture of congestion vs PNA continue to monitor input and output and electrolytes. (3) Atrial fibrillation Current Visit: No Status: Acute Plan: continue Amiodarone 200 mg po daily resume Eliquis 5 mg po BID continue to monitor on tele
--- NOTE | 2025-08-12 12:24 | P.PN ---
Subjective Date of Service: 08/12/25 Chief Complaint: Respiratory failure Subjective: Improving (Patient is improving doing much better apparently developed respiratory distress after fluid bolus she is on low-dose of vasopressors) Review of Systems General: Weakness Respiratory: Shortness of Breath Physical Examination - Vital Signs Temperature: 97.3 F Blood Pressure: 110/51 Pulse: 65 Respirations: 18 Pulse Ox (%): 95 - Physical Exam General: Alert, Oriented x3 Respiratory: Clear to auscultation bilaterally Cardiovascular: No edema, Regular rate/rhythm, Normal S1 S2 - Studies Medications List Reviewed: Yes Assessment And Plan - Current Problems (Diagnosis) (1) Hypotension Current Visit: Yes Status: Acute Plan: Patient is on Eliquis blood pressure is improving plan to wean off the Levophed (2) Thrombocytopenia Current Visit: No Status: Acute Plan: Thrombocytopenia improving (3) Respiratory distress Current Visit: Yes Status: Acute Plan: Patient developed respiratory distress after a fluid bolus he is currently doing much better echocardiogram result is pending continue with Lasix titrate off the Levophed vital signs are stable patient's troponins are trending down probably change her over to Eliquis tomorrow if her platelet count remains elevated and sustained patient has chronic thrombocytopenia
[2025-08-12] MEDS: ACETAMINOPHEN 325 MG TABLET PO PRN (13:41)
--- NOTE | 2025-08-12 14:04 | P.PN ---
Subjective Date of Service: 08/12/25 Chief Complaint: Respiratory failure Patient is awake and interactive. She is currently maintained on high flow oxygen and requiring low-dose Levophed drip to maintain MAP greater than 65. Patient denies any chest pain or shortness of breath. Physical Examination - Vital Signs Temperature: 97.3 F Blood Pressure: 118/92 Pulse: 63 Respirations: 13 Pulse Ox (%): 100 - Studies Medications List Reviewed: Yes Assessment And Plan - Plan Physical Exam: GEN: Alert, oriented, NAD CV: Regular rate and rhythm, no edema Pulm:diminished breath sounds bilaterally, mild bibasilar crackles ABD: soft, nontender nondistended Neuro: Normal speech, normal affect Problem List: Hypotension, unclear etiology Moderate CAD; recent [facility] (06/30/25) NSTEMI Acute pulmonary edema Intractable nausea/vomiting, resolved Abdominal pain T12 compression fracture, acute vs subacute A-fib Hypertension Depression Hx diverticulitis Hx of ITP (~2 months ago) Hx of PE Hypotension Unclear etiology. Possibly related to volume loss Wean off Levophed. Echocardiogram shows normal EF Dr. Yadav, pulm is following. Moderate CAD; recent [facility] (06/30/25) NSTEMI Acute pulmonary edema Acute respiratory failure with hypoxia Initial troponin 850. Trend troponins until peak Most recent echo 05/09/25 with Normal EF, wall motion and diastolic function. Did note moderate pulmonary hypertension, moderate TR. Had [facility] 06/30/[address] Kiran which noted moderate CAD; no PCI done. (LAD: 50% Ostial stenosis and then mid after diagonal 2 takeoff, there is a long 50% stenosis. +40% proximal RCA stenosis) CXR with widespread interstitial and airspace disease likely representing pulmonary edema though multifocal pneumonia would be difficult to exclude radiographically. CT abd/pelvis showed small b/l pleural effusions L > R yesterday. +Interlobular septal thickening could indicate mild pulmonary edema given IV albumin 08/10, and multiple 500mL IVF bolus. Cardiology input appreciated Continue IV Lasix, monitor intake and output Intractable nausea/vomiting, resolved Abdominal pain on admission, reports intractable nausea/vomiting that started yesterday. +Abdominal pain started after N/V CT abd/pelvis noted acute vs subacute t12 superior endplate compression deformity. Mild edematous changes in the lower lungs. Bilateral small pleural effusions advance to full liquids Continue PPI Analgesics as needed. PRN antiemetics T12 compression fracture, acute vs subacute CT noted acute vs subacute t12 superior endplate compression deformity. Analgesics as needed. A-fib Hypertension Depression Continue home dose amiodarone She is on Lovenox Hx of ITP Hx of PE (~2 months ago) PE 05/09/25 -provoked - had cholecystectomy / hospitalization Platelet count greater than 50K Hematology oncology Dr. Russell input appreciated. Continue Solu-Medrol Continue therapeutic Lovenox for PE Daily labs VTE: Therapeutic Lovenox Code: Full
--- NOTE | 2025-08-12 14:15 | RAD REPORT ---
EXAMINATION: ONE VIEW CHEST XR CLINICAL INDICATION: Female, 70 years old.,Resp Failure CHF TECHNIQUE: Frontal chest projection is submitted. Examination is limited by patient positioning and t echnique. COMPARISON: 08/11/2025 FINDINGS: Right arm PICC unchanged in position. Partial improvement of hazy opacities although some opacificati on persists at the right upper lung and bibasilar regions more so on the left. Possible small bilateral effusions. No pneumothorax. The heart is normal in size. Mediastinal contours are unremark able. IMPRESSION: Interval improvement of airspace opacities could relate to improving pneumonia or edema.
[2025-08-12] MEDS: SODIUM CHLORIDE 0.9% 10ML INJ IV PRN (20:24)
[2025-08-13 06:47] LABS: Absolute Lymphocytes (CBC) 0.6 K/uL (0.7-4.9); Hematocrit 31.6 % (36.0-45.0); Hemoglobin 10.5 g/dL (12.0-15.0); MCH 30.6 pg (27.0-35.0); MCHC 33.2 g/dL (32.0-36.0); MCV 91.9 fL (80-100); MPV 14.6 fL (7.6-11.3); Nucleated RBC Absolute Count 0.0 (0-0); Nucleated Red Blood Cells % 0.0 % (0-0); RBC Red Blood Cell Count 3.44 M/uL (3.86-4.86); White Blood Count 10.90 thou/uL (4.3-10.9)
[2025-08-13 06:59] LABS: Anion Gap 8.5 mEq/L (5.0-15.0); BUN Blood Urea Nitrogen 18.0 mg/dL (7-18); Glucose Level 162.0 mg/dL (74-106); Magnesium 1.9 mg/dL (1.6-2.4); Potassium 3.5 mEq/L (3.5-5.1)
--- NOTE | 2025-08-13 07:52 | RAD REPORT ---
EXAM: Chest Single View HISTORY: 70 years Female Resp Failure CHF COMPARISON: 08/12/2025 FINDINGS: LUNGS/PLEURA: Possible small right pleural effusion. Hazy opacities bilaterally, worse on the right b ut improved on the left compared with yesterday. CARDIAC/MEDIASTINUM: Mild cardiomegaly UPPER ABDOMEN: No significant abnormality. BONES: No acute abnormality. LINES/TUBES/OTHER: Right subclavian approach PICC with tip overlying the SVC. IMPRESSION: Mild congestive heart failure similar to 08/12/2025.
--- NOTE | 2025-08-13 09:17 | RAD REPORT ---
EXAMINATION: CTA CHEST PE CLINICAL INDICATION: Female, 70 years old. Hypoxia r/o PE TECHNIQUE: This examination was performed according to an angiographic protocol with 3D post-processi ng. This involves 3D reconstructions, MIPs, volume rendered images and/or shaded surface rendering. One or more of the following dose reduction techniques were used: Automated exposure control, adjustm ent of the mA and/or kV according to patient size, and/or iterative reconstruction. Unless otherwise specified, incidental findings do not require dedicated imaging follow-up. [id number]. COMPARISON: 05/09/2025, chest radiograph same day FINDINGS: LOWER NECK: Visualized thyroid gland and soft tissues are normal.Right subclavian approach PICC MEDIASTINUM AND LYMPH NODES: Prominent mediastinal and hilar lymph nodes which are likely reactive. THORACIC AORTA: No thoracic aortic aneurysm. PULMONARY ARTERIES: Enlarged main pulmonary arteries could indicate pulmonary artery hypertension. No pulmonary emboli identified. HEART: Mild cardiomegaly. No coronary calcifications.No significant pericardial effusion. LUNGS AND AIRWAYS: Intralobular septal thickening bilaterally with groundglass opacities. No suspicio us and/or stable pulmonary nodules. PLEURA: Small bilateral pleural effusions. No pneumothorax. OSSEOUS STRUCTURES AND CHEST WALL: Remote T9, T10, and remote appearing though new from prior T12 com pression fracture. UPPER ABDOMEN: No acute abnormalities.. IMPRESSION: Negative for pulmonary embolism. Findings consistent with pulmonary edema with small bilateral pleura l effusions.
[2025-08-13] MEDS: MIDODRINE HCL 5 MG TABLET PO SCH (09:21)
[2025-08-13 09:57] LABS: Differential Total Cells Count 100; Segmented Neutrophils 91 % (40-80)
[2025-08-13] MEDS: POTASSIUM CL SA 10 MEQ TAB PO ONE (09:57)
[2025-08-13 09:58] LABS: Anisocytosis SLIGHT; Blood Morphology Comment NOTED (NOT SEEN)
--- NOTE | 2025-08-13 11:30 | P.PN ---
Subjective Date of Service: 08/13/25 Chief Complaint: Respiratory failure Subjective: No new changes, No C/O voiced, Tolerating diet, Improving Review of Systems 10-point ROS is otherwise unremarkable Physical Examination - Vital Signs Temperature: 97.0 F Blood Pressure: 93/67 Pulse: 53 Respirations: 15 Pulse Ox (%): 90 - Physical Exam General: Alert, In no apparent distress HEENT: Atraumatic, PERRLA, EOMI Neck: Supple, JVD not distended Respiratory: Clear to auscultation bilaterally, Normal air movement Cardiovascular: Regular rate/rhythm, Normal S1 S2 Gastrointestinal: Normal bowel sounds, No tenderness Musculoskeletal: No tenderness Integumentary: No rashes Neurological: Normal speech, Normal tone, Normal affect Lymphatics: No axilla or inguinal lymphadenopathy - Studies Medications List Reviewed: Yes Assessment And Plan - Current Problems (Diagnosis) (1) NSTEMI (non-ST elevated myocardial infarction) Current Visit: Yes Status: Acute Plan: Patient with recent coronary angigoram shown mild to moderate proximal to mid LAD disease. repeated echo show normal EF and kowalski motion troponin mild elevated and down trended, this is type 2 [place] continue ASA 81 mg daily resume patient Eliquis 5 mg po BID continue to monitor on tele (2) Respiratory distress Current Visit: Yes Status: Acute Plan: continue lasix 20 mg IV BID. Echo show normal IVC but patient is getting fluids and CXR with picture of congestion vs PNA continue to monitor input and output and electrolytes. (3) Atrial fibrillation Current Visit: No Status: Acute Plan: continue Amiodarone 200 mg po daily, get an EKG to check on QT resume Eliquis 5 mg po BID continue to monitor on tele
--- NOTE | 2025-08-13 12:40 | P.PN ---
Subjective Date of Service: 08/13/25 Chief Complaint: Hypotension Subjective: Improving (Patient is improving still on low doses of Levophed denies any nausea vomiting or shortness of breath) Review of Systems Unremarkable Physical Examination - Vital Signs Temperature: 97.0 F Blood Pressure: 93/67 Pulse: 53 Respirations: 15 Pulse Ox (%): 90 - Physical Exam General: Alert, Oriented x3 Respiratory: Clear to auscultation bilaterally, Crackles/rales Cardiovascular: No edema, Regular rate/rhythm, Normal S1 S2 - Studies Medications List Reviewed: Yes Assessment And Plan - Current Problems (Diagnosis) (1) Hypotension Current Visit: Yes Status: Acute Plan: Patient has hypotension to wean off vasopressors start on midodrine not sure about the etiology of her hypotension (2) Thrombocytopenia Current Visit: No Status: Acute Plan: Patient has chronic thrombocytopenia stable changed to p.o. prednisone (3) Respiratory distress Current Visit: Yes Status: Acute Plan: Respiratory distress is resolved CT scan shows no pulmonary emboli bilateral pleural effusion prior echo shows was normal left ventricular function patient also had cardiac cath prior echocardiogram in April 30 was normal we will hold off on Lasix for now see if we can wean her off the vasopressors patient did have a non-STEMI recent cardiac cath shows moderate coronary artery disease
--- NOTE | 2025-08-13 14:46 | P.PN ---
Subjective Date of Service: 08/13/25 Chief Complaint: Hypotension Patient has no new complain. Oxygen has been weaned down from high flow oxygen to 6 L by nasal cannula. Patient remains on low-dose Levophed. Patient denies any chest pain or shortness of breath. No recorded fever. Physical Examination - Vital Signs Temperature: 97.0 F Blood Pressure: 106/64 Pulse: 59 Respirations: 15 Pulse Ox (%): 93 - Studies Medications List Reviewed: Yes Assessment And Plan - Plan Physical Exam: GEN: Alert, oriented, NAD CV: Regular rate and rhythm, no edema Pulm:diminished breath sounds bilaterally, mild bibasilar crackles, oxygen by nasal cannula ABD: soft, nontender nondistended Neuro: Normal speech, normal affect Problem List: Hypotension, unclear etiology Moderate CAD; recent [facility] (06/30/25) NSTEMI Acute pulmonary edema Intractable nausea/vomiting, resolved Abdominal pain T12 compression fracture, acute vs subacute A-fib Hypertension Depression Hx diverticulitis Hx of ITP (~2 months ago) Hx of PE Hypotension Unclear etiology. Possibly related to volume loss Echocardiogram shows normal EF Wean off Levophed as tolerated Dr. Yadav, pulm is following. Moderate CAD; recent [facility] (06/30/25) NSTEMI Acute pulmonary edema Acute respiratory failure with hypoxia Bilateral pleural effusion Initial troponin 850. Trend troponins until peak Most recent echo 05/09/25 with Normal EF, wall motion and diastolic function. Did note moderate pulmonary hypertension, moderate TR. Had [facility] 06/30/[address] Kiran which noted moderate CAD; no PCI done. (LAD: 50% Ostial stenosis and then mid after diagonal 2 takeoff, there is a long 50% stenosis. +40% proximal RCA stenosis) CXR with widespread interstitial and airspace disease likely representing pulmonary edema though multifocal pneumonia would be difficult to exclude radiographically. CT abd/pelvis showed small b/l pleural effusions L > R yesterday. +Interlobular septal thickening could indicate mild pulmonary edema Status post IV albumin 08/10, and multiple 500mL IVF bolus. Cardiology is following. CTA thorax shows bilateral pleural effusion and pulmonary edema Patient's low blood pressure is limiting diuresis with IV Lasix. Intermittent IV Lasix. Intractable nausea/vomiting, resolved Abdominal pain on admission, reports intractable nausea/vomiting that started yesterday. +Abdominal pain started after N/V CT abd/pelvis noted acute vs subacute t12 superior endplate compression deformity. Mild edematous changes in the lower lungs. Bilateral small pleural effusions No vomiting over the last couple of days. Currently tolerating full liquid diet. Continue PPI Analgesics as needed. PRN antiemetics T12 compression fracture, acute vs subacute CT noted acute vs subacute t12 superior endplate compression deformity. Analgesics as needed. A-fib Hypertension Depression Continue home dose amiodarone Hold off anticoagulation for now given significant thrombocytopenia. Will resume Eliquis after thrombocytopenia improved with ITP treatment Hx of ITP Hx of PE (~2 months ago) PE 05/09/25 -provoked - had cholecystectomy / hospitalization Platelet count greater than 50K Hematology oncology Dr. Zhao input appreciated. Repeat CTA thorax shows no PE. Hold on anticoagulation for now Continue steroid for ITP Monitor CBC to follow-up platelet count Transfuse platelets as needed for platelet count less than 20,000. VTE: SCD Code: Full
[2025-08-13] MEDS: predniSONE 20 MG TAB PO SCH (22:20)
[2025-08-13] MEDS: APIXABAN 5 MG TABLET PO SCH (22:20)
[2025-08-14 05:09] LABS: Absolute Lymphocytes (CBC) 0.9 K/uL (0.7-4.9); Hematocrit 30.5 % (36.0-45.0); Hemoglobin 10.2 g/dL (12.0-15.0); MCH 30.8 pg (27.0-35.0); MCHC 33.4 g/dL (32.0-36.0); MCV 92.1 fL (80-100); MPV 13.8 fL (7.6-11.3); Nucleated RBC Absolute Count 0.0 (0-0); Nucleated Red Blood Cells % 0.0 % (0-0); RBC Red Blood Cell Count 3.31 M/uL (3.86-4.86); White Blood Count 11.00 thou/uL (4.3-10.9)
[2025-08-14 05:18] LABS: Anion Gap 4.9 mEq/L (5.0-15.0); BUN Blood Urea Nitrogen 17.0 mg/dL (7-18); Glucose Level 125.0 mg/dL (74-106); Potassium 3.9 mEq/L (3.5-5.1)
[2025-08-14 05:50] LABS: Magnesium 2.1 mg/dL (1.6-2.4)
[2025-08-14] MEDS: POTASSIUM CL SA 10 MEQ TAB PO ONE (08:57)
--- NOTE | 2025-08-14 17:14 | P.PN ---
Subjective Date of Service: 08/14/25 Chief Complaint: Hypotension Patient has no new complain. Oxygen weaned down to 4 L by nasal cannula Patient is still requiring low-dose Levophed. No recorded fever. Physical Examination - Vital Signs Temperature: 97.1 F Blood Pressure: 112/60 Pulse: 54 Respirations: 16 Pulse Ox (%): 93 - Studies Medications List Reviewed: Yes Assessment And Plan - Plan Physical Exam: GEN: Alert, oriented, NAD CV: Regular rate and rhythm, no edema Pulm:diminished breath sounds bilaterally, mild bibasilar crackles, oxygen by nasal cannula ABD: soft, nontender nondistended Neuro: Normal speech, normal affect Problem List: Hypotension, unclear etiology Moderate CAD; recent [facility] (06/30/25) NSTEMI Acute pulmonary edema Intractable nausea/vomiting, resolved Abdominal pain T12 compression fracture, acute vs subacute A-fib Hypertension Depression Hx diverticulitis Hx of ITP (~2 months ago) Hx of PE Hypotension Unclear etiology. Possibly related to volume loss Echocardiogram shows normal EF Wean off Levophed as tolerated Dr. Yadav, pulm is following. Moderate CAD; recent [facility] (06/30/25) NSTEMI Acute pulmonary edema Acute respiratory failure with hypoxia Bilateral pleural effusion Initial troponin 850. Trend troponins until peak Most recent echo 05/09/25 with Normal EF, wall motion and diastolic function. Did note moderate pulmonary hypertension, moderate TR. Had [facility] 06/30/[address] Kiran which noted moderate CAD; no PCI done. (LAD: 50% Ostial stenosis and then mid after diagonal 2 takeoff, there is a long 50% stenosis. +40% proximal RCA stenosis) CXR with widespread interstitial and airspace disease likely representing pulmonary edema though multifocal pneumonia would be difficult to exclude radiographically. CT abd/pelvis showed small b/l pleural effusions L > R yesterday. +Interlobular septal thickening could indicate mild pulmonary edema Status post IV albumin 08/10, and multiple 500mL IVF bolus. Cardiology is following. CTA thorax shows bilateral pleural effusion and pulmonary edema Patient's low blood pressure is limiting diuresis with IV Lasix. Intermittent IV Lasix. Intractable nausea/vomiting, resolved Abdominal pain on admission, reports intractable nausea/vomiting that started yesterday. +Abdominal pain started after N/V CT abd/pelvis noted acute vs subacute t12 superior endplate compression deformity. Mild edematous changes in the lower lungs. Bilateral small pleural effusions No vomiting over the last couple of days. Currently tolerating full liquid diet. Continue PPI Analgesics as needed. PRN antiemetics T12 compression fracture, acute vs subacute CT noted acute vs subacute t12 superior endplate compression deformity. Analgesics as needed. A-fib Hypertension Depression Continue home dose amiodarone Hold off anticoagulation for now given significant thrombocytopenia. Will resume Eliquis after thrombocytopenia improved with ITP treatment Hx of ITP Hx of PE (~2 months ago) PE 05/09/25 -provoked - had cholecystectomy / hospitalization Platelet count greater than 50K Hematology oncology Dr. Zhao input appreciated. Repeat CTA thorax shows no PE. Hold on anticoagulation for now Continue steroid for ITP Monitor CBC to follow-up platelet count Transfuse platelets as needed for platelet count less than 20,000. 08/14/2025 Patient remain hypotensive and requiring Levophed drip No evidence of bleeding, no melena or hematemesis Platelet count is improving, now up to 69,000 Wean off Levophed drip as tolerated. Start low-dose Eliquis. Oxygen requirement is improving, now on 4 L by nasal cannula. Diuresis on hold due to low BP Continue on steroid for ITP Bronchodilators as needed Wean oxygen as tolerated. Increase activity as tolerated PT consult once Levophed drip is weaned off. VTE: Eliquis Code: Full
[2025-08-15 05:30] VITALS: BMI 22.8
[2025-08-15 06:02] LABS: Absolute Lymphocytes (CBC) 0.8 K/uL (0.7-4.9); Hematocrit 32.3 % (36.0-45.0); Hemoglobin 10.7 g/dL (12.0-15.0); MCH 30.5 pg (27.0-35.0); MCHC 33.2 g/dL (32.0-36.0); MCV 91.8 fL (80-100); MPV 13.8 fL (7.6-11.3); Nucleated RBC Absolute Count 0.0 (0-0); Nucleated Red Blood Cells % 0.0 % (0-0); RBC Red Blood Cell Count 3.52 M/uL (3.86-4.86); White Blood Count 11.90 thou/uL (4.3-10.9)
[2025-08-15 06:18] LABS: Magnesium 2.3 mg/dL (1.6-2.4)
[2025-08-15 06:20] LABS: ALT/SGPT 15 U/L (13-56); AST/SGOT < 10 U/L (15-37); Albumin 2.7 g/dL (3.4-5.0); Albumin/Globulin Ratio 1.0 (1.1-1.8); Alkaline Phosphatase 30 U/L (45-117); Anion Gap 4.6 mEq/L (5.0-15.0); BUN Blood Urea Nitrogen 19 mg/dL (7-18); Globulin 2.8 g/dL (2.3-3.5); Glucose Level 134 mg/dL (74-106); Potassium 4.6 mEq/L (3.5-5.1)
--- NOTE | 2025-08-15 13:13 | P.PN ---
Subjective Date of Service: 08/15/25 Chief Complaint: Hypotension Patient denies any new complaint. She is currently on 4 L oxygen by nasal cannula She is on low-dose Levophed. She has been eating well Physical Examination - Vital Signs Temperature: 98.2 F Blood Pressure: 114/67 Pulse: 57 Respirations: 16 Pulse Ox (%): 95 - Studies Medications List Reviewed: Yes Assessment And Plan - Plan Physical Exam: GEN: Alert, oriented, NAD CV: Regular rate and rhythm, no edema Pulm: Adequate breath sounds bilaterally, clear to auscultation bilaterally, oxygen by nasal cannula ABD: soft, nontender nondistended Neuro: Normal speech, normal affect Problem List: Hypotension, unclear etiology Moderate CAD; recent [facility] (06/30/25) NSTEMI Acute pulmonary edema Intractable nausea/vomiting, resolved Abdominal pain T12 compression fracture, acute vs subacute A-fib Hypertension Depression Hx diverticulitis Hx of ITP (~2 months ago) Hx of PE Hypotension Unclear etiology. Possibly related to volume loss Echocardiogram shows normal EF Wean off Levophed as tolerated Dr. Yadav, pulm is following. Moderate CAD; recent [facility] (06/30/25) NSTEMI Acute pulmonary edema Acute respiratory failure with hypoxia Bilateral pleural effusion Initial troponin 850. Trend troponins until peak Most recent echo 05/09/25 with Normal EF, wall motion and diastolic function. Did note moderate pulmonary hypertension, moderate TR. Had [facility] 06/30/[address] Kiran which noted moderate CAD; no PCI done. (LAD: 50% Ostial stenosis and then mid after diagonal 2 takeoff, there is a long 50% stenosis. +40% proximal RCA stenosis) CXR with widespread interstitial and airspace disease likely representing pulmonary edema though multifocal pneumonia would be difficult to exclude radi ographically. CT abd/pelvis showed small b/l pleural effusions L > R yesterday. +Interlobular septal thickening could indicate mild pulmonary edema Status post IV albumin 08/10, and multiple 500mL IVF bolus. Cardiology is following. CTA thorax shows bilateral pleural effusion and pulmonary edema Patient's low blood pressure is limiting diuresis with IV Lasix. Intermittent IV Lasix. Intractable nausea/vomiting, resolved Abdominal pain on admission, reports intractable nausea/vomiting that started yesterday. +Abdominal pain started after N/V CT abd/pelvis noted acute vs subacute t12 superior endplate compression deformity. Mild edematous changes in the lower lungs. Bilateral small pleural effusions No vomiting over the last couple of days. Currently tolerating full liquid diet. Continue PPI Analgesics as needed. PRN antiemetics T12 compression fracture, acute vs subacute CT noted acute vs subacute t12 superior endplate compression deformity. Analgesics as needed. A-fib Hypertension Depression Continue home dose amiodarone Hold off anticoagulation for now given significant thrombocytopenia. Will resume Eliquis after thrombocytopenia improved with ITP treatment Hx of ITP Hx of PE (~2 months ago) PE 05/09/25 -provoked - had cholecystectomy / hospitalization Platelet count greater than 50K Hematology oncology Dr. Zhao input appreciated. Repeat CTA thorax shows no PE. Hold on anticoagulation for now Continue steroid for ITP Monitor CBC to follow-up platelet count Transfuse platelets as needed for platelet count less than 20,000. 08/14/2025 Patient remain hypotensive and requiring Levophed drip No evidence of bleeding, no melena or hematemesis Platelet count is improving, now up to 69,000 Wean off Levophed drip as tolerated. Start low-dose Eliquis. Oxygen requirement is improving, now on 4 L by nasal cannula. Diuresis on hold due to low BP Continue on steroid for ITP Bronchodilators as needed Wean oxygen as tolerated. Increase activity as tolerated PT consult once Levophed drip is weaned off. 08/15/2025 1. Levophed drip has been weaned down, midodrine dose increased to 10 mg 3 times daily. Normal cortisol level, no cortisol insufficiency. Check TSH. 2. Platelet count continue to improve, up to 88,000 today. Continue steroids for ITP. 3. Continue low-dose Eliquis for atrial fibrillation anticoagulation 4. Bicarb level increasing, possible contraction alkalosis. Obtain venous blood gas 5. Continue amiodarone and Eliquis for atrial fibrillation 6. Lasix for CHF exacerbation is on hold due to hypotension. 7. Wean down oxygen as tolerated 8. Wean off Levophed drip VTE: Eliquis Code: Full
[2025-08-15] MEDS: MIDODRINE HCL 5 MG TABLET PO SCH (13:27)
[2025-08-15 14:19] LABS: Base Excess, VBG 12.2 mmol/L (-2.0-3.0); HCO3, Venous Blood Gas 36.5 mmol/L (21.0-29.0); O2 Saturation, VBG 95.3 % (40.0-70.0); PCO2, Venous Blood Gas 55 mmHg (41-51); PH, Venous Blood Gas 7.43 (7.32-7.42); PO2, Venous Blood Gas 92 mmHg (25-40)
--- NOTE | 2025-08-15 14:45 | P.PN ---
Subjective Date of Service: 08/15/25 Chief Complaint: Hypotension Subjective: No new changes, No C/O voiced, Tolerating diet, Improving Review of Systems 10-point ROS is otherwise unremarkable Physical Examination - Vital Signs Temperature: 98.2 F Blood Pressure: 102/57 Pulse: 53 Respirations: 18 Pulse Ox (%): 96 - Physical Exam General: Alert, In no apparent distress HEENT: Atraumatic, PERRLA, EOMI Neck: Supple, JVD not distended Respiratory: Clear to auscultation bilaterally, Normal air movement Cardiovascular: Regular rate/rhythm, Normal S1 S2 Gastrointestinal: Normal bowel sounds, No tenderness Musculoskeletal: No tenderness Integumentary: No rashes Neurological: Normal speech, Normal tone, Normal affect Lymphatics: No axilla or inguinal lymphadenopathy - Studies Medications List Reviewed: Yes Assessment And Plan - Current Problems (Diagnosis) (1) NSTEMI (non-ST elevated myocardial infarction) Current Visit: Yes Status: Acute Plan: Patient with recent coronary angigoram shown mild to moderate proximal to mid LAD disease. repeated echo show normal EF and kowalski motion troponin mild elevated and down trended, this is type 2 [place] continue ASA 81 mg daily continue Eliquis 5 mg po BID continue to monitor on tele (2) Respiratory distress Current Visit: Yes Status: Acute Plan: Echo show normal IVC, better continue to monitor input and output and electrolytes. (3) Atrial fibrillation Current Visit: No Status: Acute Plan: cut down Amiodarone to 100 mg po daily. Eliquis 5 mg po BID continue to monitor on tele
[2025-08-15] MEDS: ENSURE ENLIVE 237 ML CAN PO SCH (21:00)
[2025-08-15] MEDS: AMIODARONE HCL 200 MG TAB PO SCH (21:25)
[2025-08-16 05:42] LABS: Absolute Lymphocytes (CBC) 4.0 K/uL (0.7-4.9); Hematocrit 35.8 % (36.0-45.0); Hemoglobin 11.8 g/dL (12.0-15.0); MCH 30.5 pg (27.0-35.0); MCHC 32.9 g/dL (32.0-36.0); MCV 92.6 fL (80-100); MPV 13.6 fL (7.6-11.3); Nucleated RBC Absolute Count 0.0 (0-0); Nucleated Red Blood Cells % 0.0 % (0-0); RBC Red Blood Cell Count 3.87 M/uL (3.86-4.86); White Blood Count 13.20 thou/uL (4.3-10.9)
[2025-08-16 06:05] LABS: Anion Gap 5.8 mEq/L (5.0-15.0); BUN Blood Urea Nitrogen 18.0 mg/dL (7-18); Glucose Level 86.0 mg/dL (74-106); Magnesium 2.2 mg/dL (1.6-2.4); Potassium 3.8 mEq/L (3.5-5.1)
[2025-08-16] MEDS: POTASSIUM CL SA 10 MEQ TAB PO ONE (08:22)
[2025-08-16] MEDS: predniSONE 20 MG TAB PO SCH (08:28)
[2025-08-16] MEDS: DOCUSATE NA 100 MG CAP PO PRN (09:45)
--- NOTE | 2025-08-16 11:29 | P.PN ---
Subjective Date of Service: 08/16/25 Chief Complaint: Hypotension Patient states she feels much better Blood pressure improved, off Levophed and not requiring midodrine. Oxygen weaned down to 3 L by nasal cannula Physical Examination - Vital Signs Temperature: 98.6 F Blood Pressure: 87/47 Pulse: 71 Respirations: 13 Pulse Ox (%): 99 - Studies Medications List Reviewed: Yes Assessment And Plan - Plan Physical Exam: GEN: Alert, oriented, NAD CV: Regular rate and rhythm, no edema Pulm: Adequate breath sounds bilaterally, clear to auscultation bilaterally, oxygen by nasal cannula ABD: soft, nontender nondistended Neuro: Normal speech, normal affect Problem List: Hypotension, unclear etiology Moderate CAD; recent [facility] (06/30/25) NSTEMI Acute pulmonary edema Intractable nausea/vomiting, resolved Abdominal pain T12 compression fracture, acute vs subacute A-fib Hypertension Depression Hx diverticulitis Hx of ITP (~2 months ago) Hx of PE Hypotension Unclear etiology. Possibly related to volume loss Echocardiogram shows normal EF Wean off Levophed as tolerated Dr. Yadav, pulm is following. Moderate CAD; recent [facility] (06/30/25) NSTEMI Acute pulmonary edema Acute respiratory failure with hypoxia Bilateral pleural effusion Initial troponin 850. Trend troponins until peak Most recent echo 05/09/25 with Normal EF, wall motion and diastolic function. Did note moderate pulmonary hypertension, moderate TR. Had [facility] 06/30/[address] Kiran which noted moderate CAD; no PCI done. (LAD: 50% Ostial stenosis and then mid after diagonal 2 takeoff, there is a long 50% stenosis. +40% proximal RCA stenosis) CXR with widespread interstitial and airspace disease likely representing pulmonary edema though multifocal pneumonia would be difficult to exclude radiographically. CT abd/pelvis showed small b/l pleural effusions L > R yesterday. +Interlobular septal thickening could indicate mild pulmonary edema Status post IV albumin 08/10, and multiple 500mL IVF bolus. Cardiology is following. CTA thorax shows bilateral pleural effusion and pulmonary edema Patient's low blood pressure is limiting diuresis with IV Lasix. Intermittent IV Lasix. Intractable nausea/vomiting, resolved Abdominal pain on admission, reports intractable nausea/vomiting that started yesterday. +Abdominal pain started after N/V CT abd/pelvis noted acute vs subacute t12 superior endplate compression deformity. Mild edematous changes in the lower lungs. Bilateral small pleural effusions No vomiting over the last couple of days. Currently tolerating full liquid diet. Continue PPI Analgesics as needed. PRN antiemetics T12 compression fracture, acute vs subacute CT noted acute vs subacute t12 superior endplate compression deformity. Analgesics as needed. A-fib Hypertension Depression Continue home dose amiodarone Hold off anticoagulation for now given significant thrombocytopenia. Will resume Eliquis after thrombocytopenia improved with ITP treatment Hx of ITP Hx of PE (~2 months ago) PE 05/09/25 -provoked - had cholecystectomy / hospitalization Platelet count greater than 50K Hematology oncology Dr. Zhao input appreciated. Repeat CTA thorax shows no PE. Hold on anticoagulation for now Continue steroid for ITP Monitor CBC to follow-up platelet count Transfuse platelets as needed for platelet count less than 20,000. 08/14/2025 Patient remain hypotensive and requiring Levophed drip No evidence of bleeding, no melena or hematemesis Platelet count is improving, now up to 69,000 Wean off Levophed drip as tolerated. Start low-dose Eliquis. Oxygen requirement is improving, now on 4 L by nasal cannula. Diuresis on hold due to low BP Continue on steroid for ITP Bronchodilators as needed Wean oxygen as tolerated. Increase activity as tolerated PT consult once Levophed drip is weaned off. 08/15/2025 1. Levophed drip has been weaned down, midodrine dose increased to 10 mg 3 times daily. Normal cortisol level, no cortisol insufficiency. Check TSH. 2. Platelet count continue to improve, up to 88,000 today. Continue steroids for ITP. 3. Continue low-dose Eliquis for atrial fibrillation anticoagulation 4. Bicarb level increasing, possible contraction alkalosis. Obtain venous blood gas 5. Continue amiodarone and Eliquis for atrial fibrillation 6. Lasix for CHF exacerbation is on hold due to hypotension. 7. Wean down oxygen as tolerated 8. Wean off Levophed drip 08/16/2025 1. Levophed drip weaned off, patient blood pressure improved, patient has not needed midodrine today. TSH is slightly low, hypothyroidism as a cause of low blood pressure ruled out. No cortisol insufficiency 2. Platelet count now up to 105. Continue Eliquis for atrial fibrillation 3. Heart rate controlled with amiodarone 4. Metabolic alkalosis and respiratory status discussed with pulmonary Dr. Yadav, patient may need Diamox for diuresis for CHF if her blood pressure remains stable. 5. Continue to wean oxygen as tolerated. Transfer to the medical floor. 6. Start PT. VTE: Eliquis Code: Full
[2025-08-16] MEDS: MIDODRINE HCL 5 MG TABLET ONE (13:58)
[2025-08-17 05:55] LABS: Absolute Lymphocytes (CBC) 3.8 K/uL (0.7-4.9); Hematocrit 34.0 % (36.0-45.0); Hemoglobin 11.5 g/dL (12.0-15.0); MCH 30.9 pg (27.0-35.0); MCHC 33.9 g/dL (32.0-36.0); MCV 91.1 fL (80-100); MPV 12.9 fL (7.6-11.3); Nucleated RBC Absolute Count 0.0 (0-0); Nucleated Red Blood Cells % 0.1 % (0-0); RBC Red Blood Cell Count 3.74 M/uL (3.86-4.86); White Blood Count 12.80 thou/uL (4.3-10.9)
[2025-08-17 06:18] LABS: Anion Gap 6.9 mEq/L (5.0-15.0); BUN Blood Urea Nitrogen 15.0 mg/dL (7-18); Glucose Level 85.0 mg/dL (74-106); Potassium 3.9 mEq/L (3.5-5.1)
--- NOTE | 2025-08-17 09:27 | P.PN ---
Subjective Date of Service: 08/17/25 Chief Complaint: Hypotension Subjective: No new changes, No C/O voiced, Tolerating diet, Ambulating, Improving Review of Systems 10-point ROS is otherwise unremarkable Physical Examination - Vital Signs Temperature: 98.2 F Blood Pressure: 102/69 Pulse: 70 Respirations: 20 Pulse Ox (%): 100 - Physical Exam General: Alert, In no apparent distress HEENT: Atraumatic, PERRLA, EOMI Neck: Supple, JVD not distended Respiratory: Clear to auscultation bilaterally, Normal air movement Cardiovascular: Regular rate/rhythm, Normal S1 S2 Gastrointestinal: Normal bowel sounds, No tenderness Musculoskeletal: No tenderness Integumentary: No rashes Neurological: Normal speech, Normal tone, Normal affect Lymphatics: No axilla or inguinal lymphadenopathy - Studies Medications List Reviewed: Yes Assessment And Plan - Current Problems (Diagnosis) (1) NSTEMI (non-ST elevated myocardial infarction) Current Visit: Yes Status: Acute Plan: Patient with recent coronary angigoram shown mild to moderate proximal to mid LAD disease. repeated echo show normal EF and kowalski motion troponin mild elevated and down trended, this is type 2 [place] continue ASA 81 mg daily continue Eliquis 5 mg po BID continue to monitor on tele (2) Respiratory distress Current Visit: Yes Status: Acute Plan: Echo show normal IVC, better continue to monitor input and output and electrolytes. (3) Atrial fibrillation Current Visit: No Status: Acute Plan: Amiodarone was stopped due to significant bradycardia Eliquis 5 mg po BID continue to monitor on tele
--- NOTE | 2025-08-17 10:39 | P.PN ---
Subjective Date of Service: 08/17/25 Chief Complaint: Hypotension Patient denies any shortness of breath. She denies any complaint. Blood pressure has been stable without Levophed for more than 24 hours. Oxygen weaned down to 2 L by nasal cannula. Patient is currently in sinus rhythm. Physical Examination - Vital Signs Temperature: 98.2 F Blood Pressure: 102/69 Pulse: 70 Respirations: 20 Pulse Ox (%): 100 - Studies Medications List Reviewed: Yes Assessment And Plan - Plan Physical Exam: GEN: Alert, oriented, NAD CV: Regular rate and rhythm, no edema Pulm: Adequate breath sounds bilaterally, clear to auscultation bilaterally, oxygen by nasal cannula ABD: soft, nontender nondistended, no organomegaly. Neuro: Normal speech, normal affect Problem List: Hypotension, unclear etiology Moderate CAD; recent [facility] (06/30/25) NSTEMI Acute pulmonary edema Intractable nausea/vomiting, resolved Abdominal pain T12 compression fracture, acute vs subacute A-fib Hypertension Depression Hx diverticulitis Hx of ITP (~2 months ago) Hx of PE Hypotension Unclear etiology. Possibly related to volume loss Echocardiogram shows normal EF Wean off Levophed as tolerated Dr. Yadav, pulm is following. Moderate CAD; recent [facility] (06/30/25) NSTEMI Acute pulmonary edema Acute respiratory failure with hypoxia Bilateral pleural effusion Initial troponin 850. Trend troponins until peak Most recent echo 05/09/25 with Normal EF, wall motion and diastolic function. Did note moderate pulmonary hypertension, moderate TR. Had [facility] 06/30/[address] Kiran which noted moderate CAD; no PCI done. (LAD: 50% Ostial stenosis and then mid after diagonal 2 takeoff, there is a long 50% stenosis. +40% proximal RCA stenosis) CXR with widespread interstitial and airspace disease likely representing pulmonary edema though multifocal pneumonia would be difficult to exclude radiographically. CT abd/pelvis showed small b/l pleural effusions L > R yesterday. +Interlobular septal thickening could indicate mild pulmonary edema Status post IV albumin 08/10, and multiple 500mL IVF bolus. Cardiology is following. CTA thorax shows bilateral pleural effusion and pulmonary edema Patient's low blood pressure is limiting diuresis with IV Lasix. Intermittent IV Lasix. Intractable nausea/vomiting, resolved Abdominal pain on admission, reports intractable nausea/vomiting that started yesterday. +Abdominal pain started after N/V CT abd/pelvis noted acute vs subacute t12 superior endplate compression deformity. Mild edematous changes in the lower lungs. Bilateral small pleural effusions No vomiting over the last couple of days. Currently tolerating full liquid diet. Continue PPI Analgesics as needed. PRN antiemetics T12 compression fracture, acute vs subacute CT noted acute vs subacute t12 superior endplate compression deformity. Analgesics as needed. A-fib Hypertension Depression Continue home dose amiodarone Hold off anticoagulation for now given significant thrombocytopenia. Will resume Eliquis after thrombocytopenia improved with ITP treatment Hx of ITP Hx of PE (~2 months ago) PE 05/09/25 -provoked - had cholecystectomy / hospitalization Platelet count greater than 50K Hematology oncology Dr. Zhao input appreciated. Repeat CTA thorax shows no PE. Hold on anticoagulation for now Continue steroid for ITP Monitor CBC to follow-up platelet count Transfuse platelets as needed for platelet count less than 20,000. 08/14/2025 Patient remain hypotensive and requiring Levophed drip No evidence of bleeding, no melena or hematemesis Platelet count is improving, now up to 69,000 Wean off Levophed drip as tolerated. Start low-dose Eliquis. Oxygen requirement is improving, now on 4 L by nasal cannula. Diuresis on hold due to low BP Continue on steroid for ITP Bronchodilators as needed Wean oxygen as tolerated. Increase activity as tolerated PT consult once Levophed drip is weaned off. 08/15/2025 1. Levophed drip has been weaned down, midodrine dose increased to 10 mg 3 times daily. Normal cortisol level, no cortisol insufficiency. Check TSH. 2. Platelet count continue to improve, up to 88,000 today. Continue steroids for ITP. 3. Continue low-dose Eliquis for atrial fibrillation anticoagulation 4. Bicarb level increasing, possible contraction alkalosis. Obtain venous blood gas 5. Continue amiodarone and Eliquis for atrial fibrillation 6. Lasix for CHF exacerbation is on hold due to hypotension. 7. Wean down oxygen as tolerated 8. Wean off Levophed drip 08/16/2025 1. Levophed drip weaned off, patient blood pressure improved, patient has not needed midodrine today. TSH is slightly low, hypothyroidism as a cause of low blood pressure ruled out. No cortisol insufficiency 2. Platelet count now up to 105. Continue Eliquis for atrial fibrillation 3. Heart rate controlled with amiodarone 4. Metabolic alkalosis and respiratory status discussed with pulmonary Dr. Yadav, patient may need Diamox for diuresis for CHF if her blood pressure remains stable. 5. Continue to wean oxygen as tolerated. Transfer to the medical floor. 6. Start PT. 08/17/2025 1. Blood pressure improved, patient has remained normotensive without Levophed drip. Patient is on midodrine. Continue midodrine 2. Sinus bradycardia-medication induced secondary to amiodarone. Aiodarone discontinued due to significant bradycardia with heart rate down to the 20s. Patient remain in sinus rhythm without amiodarone. Platelet count improved, continue Eliquis. 3. Continue steroid for ITP, monitor CBC to follow platelet counts 4. Pulmonary Dr. Yadav is following for acute respiratory failure with metabolic acidosis management. Diuresis per pulmonary. 5. Continue to wean oxygen as tolerated. 6. Analgesics for chronic pain syndrome. 7. Patient BP limited PT assessments yesterday. Continue PT. VTE: Eliquis Code: Full
[2025-08-18 07:33] LABS: Absolute Lymphocytes (CBC) 4.2 K/uL (0.7-4.9); Hematocrit 34.7 % (36.0-45.0); Hemoglobin 11.7 g/dL (12.0-15.0); MCH 30.7 pg (27.0-35.0); MCHC 33.6 g/dL (32.0-36.0); MCV 91.4 fL (80-100); MPV 12.3 fL (7.6-11.3); Nucleated RBC Absolute Count 0.0 (0-0); Nucleated Red Blood Cells % 0.1 % (0-0); RBC Red Blood Cell Count 3.80 M/uL (3.86-4.86); White Blood Count 12.70 thou/uL (4.3-10.9)
[2025-08-18 07:55] LABS: Anion Gap 7.0 mEq/L (5.0-15.0); BUN Blood Urea Nitrogen 16.0 mg/dL (7-18); Glucose Level 76.0 mg/dL (74-106); Potassium 4.0 mEq/L (3.5-5.1)
--- NOTE | 2025-08-18 18:15 | P.PN ---
Subjective Date of Service: 08/18/25 Chief Complaint: Hypotension Patient denies any shortness of breath. She was weaned off of oxygen this morning She has also needed Levophed. Patient states that she ambulated in the hallway with therapy Physical Examination - Vital Signs Temperature: 98.2 F Blood Pressure: 125/54 Pulse: 56 Respirations: 16 Pulse Ox (%): 99 - Studies Medications List Reviewed: Yes Assessment And Plan - Plan Physical Exam: GEN: Alert, oriented, NAD CV: Regular rate and rhythm, no edema Pulm: Adequate breath sounds bilaterally, clear to auscultation bilaterally, oxygen by nasal cannula ABD: soft, nontender nondistended, no organomegaly. Neuro: Normal speech, normal affect Problem List: Hypotension, unclear etiology Moderate CAD; recent [facility] (06/30/25) NSTEMI Acute pulmonary edema Intractable nausea/vomiting, resolved Abdominal pain T12 compression fracture, acute vs subacute A-fib Hypertension Depression Hx diverticulitis Hx of ITP (~2 months ago) Hx of PE Hypotension Unclear etiology. Possibly related to volume loss Echocardiogram shows normal EF Wean off Levophed as tolerated Dr. Yadav, pulm is following. Moderate CAD; recent [facility] (06/30/25) NSTEMI Acute pulmonary edema Acute respiratory failure with hypoxia Bilateral pleural effusion Initial troponin 850. Trend troponins until peak Most recent echo 05/09/25 with Normal EF, wall motion and diastolic function. Did note moderate pulmonary hypertension, moderate TR. Had [facility] 06/30/[address] Kiran which noted moderate CAD; no PCI done. (LAD: 50% Ostial stenosis and then mid after diagonal 2 takeoff, there is a long 50% stenosis. +40% proximal RCA stenosis) CXR with widespread interstitial and airspace disease likely representing pulmonary edema though multifocal pneumonia would be difficult to exclude radiographically. CT abd/pelvis showed small b/l pleural effusions L > R yesterday. +Interlobular septal thickening could indicate mild pulmonary edema Status post IV albumin 08/10, and multiple 500mL IVF bolus. Cardiology is following. CTA thorax shows bilateral pleural effusion and pulmonary edema Patient's low blood pressure is limiting diuresis with IV Lasix. Intermittent IV Lasix. Intractable nausea/vomiting, resolved Abdominal pain on admission, reports intractable nausea/vomiting that started yesterday. +A bdominal pain started after N/V CT abd/pelvis noted acute vs subacute t12 superior endplate compression deformity. Mild edematous changes in the lower lungs. Bilateral small pleural effusions No vomiting over the last couple of days. Currently tolerating full liquid diet. Continue PPI Analgesics as needed. PRN antiemetics T12 compression fracture, acute vs subacute CT noted acute vs subacute t12 superior endplate compression deformity. Analgesics as needed. A-fib Hypertension Depression Continue home dose amiodarone Hold off anticoagulation for now given significant thrombocytopenia. Will resume Eliquis after thrombocytopenia improved with ITP treatment Hx of ITP Hx of PE (~2 months ago) PE 05/09/25 -provoked - had cholecystectomy / hospitalization Platelet count greater than 50K Hematology oncology Dr. Zhao input appreciated. Repeat CTA thorax shows no PE. Hold on anticoagulation for now Continue steroid for ITP Monitor CBC to follow-up platelet count Transfuse platelets as needed for platelet count less than 20,000. 08/14/2025 Patient remain hypotensive and requiring Levophed drip No evidence of bleeding, no melena or hematemesis Platelet count is improving, now up to 69,000 Wean off Levophed drip as tolerated. Start low-dose Eliquis. Oxygen requirement is improving, now on 4 L by nasal cannula. Diuresis on hold due to low BP Continue on steroid for ITP Bronchodilators as needed Wean oxygen as tolerated. Increase activity as tolerated PT consult once Levophed drip is weaned off. 08/15/2025 1. Levophed drip has been weaned down, midodrine dose increased to 10 mg 3 times daily. Normal cortisol level, no cortisol insufficiency. Check TSH. 2. Platelet count continue to improve, up to 88,000 today. Continue steroids for ITP. 3. Continue low-dose Eliquis for atrial fibrillation anticoagulation 4. Bicarb level increasing, possible contraction alkalosis. Obtain venous blood gas 5. Continue amiodarone and Eliquis for atrial fibrillation 6. Lasix for CHF exacerbation is on hold due to hypotension. 7. Wean down oxygen as tolerated 8. Wean off Levophed drip 08/16/2025 1. Levophed drip weaned off, patient blood pressure improved, patient has not needed midodrine today. TSH is slightly low, hypothyroidism as a cause of low blood pressure ruled out. No cortisol insufficiency 2. Platelet count now up to 105. Continue Eliquis for atrial fibrillation 3. Heart rate controlled with amiodarone 4. Metabolic alkalosis and respiratory status discussed with pulmonary Dr. Falguni arriaga, patient may need Diamox for diuresis for CHF if her blood pressure remains stable. 5. Continue to wean oxygen as tolerated. Transfer to the medical floor. 6. Start PT. 08/17/2025 1. Blood pressure improved, patient has remained normotensive without Levophed drip. Patient is on midodrine. Continue midodrine 2. Sinus bradycardia-medication induced secondary to amiodarone. Aiodarone discontinued due to significant bradycardia with heart rate down to the 20s. Patient remain in sinus rhythm without amiodarone. Platelet count improved, continue Eliquis. 3. Continue steroid for ITP, monitor CBC to follow platelet counts 4. Pulmonary Dr. Yadav is following for acute respiratory failure with metabolic acidosis management. Diuresis per pulmonary. 5. Continue to wean oxygen as tolerated. 6. Analgesics for chronic pain syndrome. 7. Patient BP limited PT assessments yesterday. Continue PT. 08/18/2025 1. Blood pressure stable without Levophed. Continue midodrine. 2. Heart rate stable without amiodarone. Continue to hold amiodarone. Continue Eliquis. 3. Platelet count continue to improve. Continue steroids for ITP 4. Analgesics as needed for pain. Possible discharge in AM. VTE: Eliquis Code: Full
[2025-08-19 05:32] LABS: Absolute Lymphocytes (CBC) 3.8 K/uL (0.7-4.9); Hematocrit 30.6 % (36.0-45.0); Hemoglobin 10.2 g/dL (12.0-15.0); MCH 30.4 pg (27.0-35.0); MCHC 33.2 g/dL (32.0-36.0); MCV 91.6 fL (80-100); MPV 13.2 fL (7.6-11.3); Nucleated RBC Absolute Count 0.0 (0-0); Nucleated Red Blood Cells % 0.0 % (0-0); RBC Red Blood Cell Count 3.34 M/uL (3.86-4.86); White Blood Count 13.30 thou/uL (4.3-10.9)
[2025-08-19 05:48] LABS: Anion Gap 7.6 mEq/L (5.0-15.0); BUN Blood Urea Nitrogen 15.0 mg/dL (7-18); Glucose Level 75.0 mg/dL (74-106); Potassium 3.6 mEq/L (3.5-5.1)
[2025-08-19 09:42] VITALS: O2SAT 95
[2025-08-19 12:15] VITALS: BP 99/48; TEMP 98.3
--- NOTE | 2025-08-19 12:45 | P.PN ---
Date of Service: 08/19/25 Subjective: BP intermittently low 80-90s/40-50s otherwise doing okay no new issues Physical Exam: GEN: Alert, oriented, NAD CV: Regular rate and rhythm, no edema Pulm: Nonlabored respirations on 10L NC, diminished ABD: soft, mild tenderness, nondistended Neuro: Normal speech, normal affect Problem List: Hypotension, unclear etiology Moderate CAD; recent [facility] (06/30/25) NSTEMI Acute pulmonary edema Intractable nausea/vomiting, resolved Abdominal pain T12 compression fracture, acute vs subacute A-fib Hypertension Depression Hx diverticulitis Hx of ITP (~2 months ago) Hx of PE Hypotension, unclear etiology Unclear etiology. Possibly related to volume loss Echocardiogram shows normal EF Off levo since ~08/16 Blood pressure relatively stable without Levophed. HR stable without amio Continue midodrine 10mg TID Dr. Yadav, pulm is following. Moderate CAD; recent [facility] (06/30/25) NSTEMI Acute pulmonary edema Initial troponin 850. Trend troponins until peak Most recent echo 05/09/25 with Normal EF, wall motion and diastolic function. Did note moderate pulmonary hypertension, moderate TR. Had [facility] 06/30/[address] Kiran which noted moderate CAD; no PCI done. (LAD: 50% Ostial stenosis and then mid after diagonal 2 takeoff, there is a long 50% stenosis. +40% proximal RCA stenosis) CXR with widespread interstitial and airspace disease likely representing pulmonary edema though multifocal pneumonia would be difficult to exclude radiographically. CTA thorax shows bilateral pleural effusion and pulmonary edema Echo: 55-60%EF, normal diastolic function, moderately dilated left atrium s/p IV lasix. Limited due to BP. Monitor on telemetry Cardiology is following Intractable nausea/vomiting, resolved Abdominal pain on admission, reports intractable nausea/vomiting that started yesterday. +Abdominal pain started after N/V CT abd/pelvis noted acute vs subacute t12 superior endplate compression deformity. Mild edematous changes in the lower lungs. Bilateral small pleural effusions tolerating diet for several days without issues continue PPI T12 compression fracture, acute vs subacute CT noted acute vs subacute t12 superior endplate compression deformity. pain control A-fib Hypertension Depression confirm home meds, restart as appropriate Eliquis resumed 08/13. Platelets stable Hx of ITP Hx of PE (~2 months ago) Monitor plt closely. slightly improved compared to few days ago PE 05/09/25 -provoked - had cholecystectomy / hospitalization Repeat CTA thorax shows no PE. Continue prednisone 1mg/kg daily, titrate over next [address] Zhao - discussed over phone Eliquis resumed 08/13. Platelets stable Daily labs VTE: home eliquis Code: Full Dispo: Home Pending BP stable
--- NOTE | 2025-08-20 10:59 | P.DS ---
Admission Date: 08/10/25 Discharge Date: 08/19/25 Disposition: ROUTINE DISCHARGE Discharge Condition: GOOD Reason for Admission: Hypotension Consultations: Cardiology - Dr. Cadet Pulmonology - Dr. Yadav Brief History of Present Illness: 70yo F, PMH: atrial fibrillation currently on amiodarone 200 mg p.o. twice daily, and Eliquis 5 mg p.o. twice daily, essential hypertension, depression, bronchitis, diverticulitis, Patient presents to the ER today complaining of nausea and vomiting nonbilious and nonbloody content with no associated abdominal pain. Patient states she started having nausea and vomiting this morning nonbilious and nonbloody content, states it continued throughout the day, and unable to tolerate p.o. intake which then prompted her to report to ER. While in the ER, patient denies of any abdominal pain, and during admission assessment I inquired from the patient if she has any abdominal pain she refused but she requested for pain medication. ER Provider had requested for CT of the abdomen, but the patient refused stating that she does not have any abdominal pain and as such it was not done. Patient bowel sounds present all 4 quadrants, soft, nontender palpation, and nondistended. Hospital Course: Problem List: Hypotension, unclear etiology Moderate CAD; recent [facility] (06/30/25) NSTEMI Acute pulmonary edema Intractable nausea/vomiting, resolved Abdominal pain T12 compression fracture, acute vs subacute A-fib Hypertension Depression Hx diverticulitis Hx of ITP (~2 months ago) Hx of PE Physician discharge instructions: Patient presented with intractable nausea and vomiting on admission, inability to tolerate oral intake. CT abdomen/pelvis on admission noted acute vs subacute t12 superior endplate compression deformity, mild edematous changes in the lower lungs, bilateral small pleural effusions. No acute findings in the abdomen seen. She was started on IV protonix and had improvement. Her diet was advanced as symptoms improved. Unclear etiology, possibly related to GERD. She was noted to desat on 08/11 associated with hypotension (50/30-40s) requiring pressors and was transferred to the ICU. Unclear exact etiology of hypotension, possibly related to volume loss. Patient was weaned off pressors 08/16 and had remained mostly normotensive for several days with midodrine 10mg TID. She will be discharged with 5mg TID. Troponins were elevated but trended flat (peak 850). Cardiology was consulted and recommended patient follow up in the office in a few weeks for further management. No evidence to warrant further inpatient testing given recent [facility] which showed mild to moderate proximal to mid LAD disease and recent normal echo. Medications: Amiodarone discontinued due to bradycardia Midodrine 5mg three times a day - ~every 8 hours if blood pressure < 100 systolic continue other home meds as previously prescribed. Follow up: PCP 3-5 days Please call to schedule / confirm appointments Physical Exam: GEN: Alert, oriented, NAD CV: Regular rate and rhythm, no edema Pulm: Nonlabored respirations on room air ABD: soft, no tenderness, nondistended Neuro: Normal speech, normal affect Vital Signs/Physical Exam: Temp Pulse Resp BP Pulse Ox 98.3 F 65 16 99/48 L 94 08/19/25 12:00 08/19/25 12:00 08/19/25 12:00 08/19/25 12:00 08/19/25 12:00 Laboratory Data at Discharge: WBC 13.30 thou/uL (4.3-10.9) H 08/19/25 05:02 Hgb 10.2 g/dL (12.0-15.0) L D 08/19/25 05:02 Hct 30.6 % (36.0-45.0) L 08/19/25 05:02 Plt Count 97 thou/uL (152-406) L 08/19/25 05:02 Sodium 140 mEq/L (136-145) 08/19/25 05:02 Potassium 3.6 mEq/L (3.5-5.1) 08/19/25 05:02 BUN 15 mg/dL (7-18) 08/19/25 05:02 Creatinine 0.89 mg/dL (0.55-1.02) 08/19/25 05:02 Glucose 75 mg/dL (74-106) 08/19/25 05:02 Phosphorus 3.3 mg/dL (2.5-4.9) 08/16/25 05:15 Magnesium 2.2 mg/dL (1.6-2.4) 08/16/25 05:15 Total Bilirubin 0.5 mg/dL (0.2-1.0) 08/15/25 05:20 AST < 10 U/L (15-37) L 08/15/25 05:20 ALT 15 U/L (13-56) 08/15/25 05:20 Alkaline Phosphatase 30 U/L (45-117) L 08/15/25 05:20 Lipase 29 U/L (13-75) 08/09/25 19:25 Home Medications: RX: Trazodone HCl 300 mg PO BEDTIME 02/02/13 RX: Ondansetron [Zofran (Odt)*] 4 mg PO Q6H PRN #20 tab 08/12/16 RX: Tramadol HCl [Ultram] 50 mg PO Q8H PRN #20 tablet 08/12/16 RX: Apixaban [Eliquis] 5 mg PO BID 30 Days #60 tab 05/15/25 RX: Gabapentin [Neurontin*] 100 mg PO TID 08/10/25 RX: Tizanidine [Zanaflex*] 4 mg PO TID 08/10/25 RX: Midodrine HCl [Proamatine*] 5 mg PO TID 30 Days #90 tab 08/19/25 New Medications: RX: Midodrine HCl [Proamatine*] 5 mg PO TID 30 Days #90 tab Physician Discharge Instructions: Physician discharge instructions: Patient presented with intractable nausea and vomiting on admission, inability to tolerate oral intake. CT abdomen/pelvis on admission noted acute vs subacute t12 superior endplate compression deformity, mild edematous changes in the lower lungs, bilateral small pleural effusions. No acute findings in the abdomen seen. She was started on IV protonix and had improvement. Her diet was advanced as symptoms improved. Unclear etiology, possibly related to GERD. She was noted to desat on 08/11 associated with hypotension (50/30-40s) requiring pressors and was transferred to the ICU. Unclear exact etiology of hypotension, possibly related to volume loss. Patient was weaned off pressors 08/16 and had remained mostly normotensive for several days with midodrine 10mg TID. She will be discharged with 5mg TID. Troponins were elevated but trended flat (peak 850). Cardiology was consulted and recommended patient follow up in the office in a few weeks for further management. No evidence to warrant further inpatient testing given recent LHC which showed mild to moderate proximal to mid LAD disease and recent normal echo. Medications: Amiodarone discontinued due to bradycardia Midodrine 5mg three times a day - ~every 8 hours if blood pressure < 100 systolic continue other home meds as previously prescribed. Follow up: PCP 3-5 days Please call to schedule / confirm appointments Followup: Vani Herr NP [Primary Care Provider] - Time spent managing pt's care (in minutes): 45
== END 2025-08-19 16:07 | disposition home or self-care (01) | DRG 280 ==
LOC: ER 18:52 → ERHOLD 23:52 → 4TH 08-10 00:19 → OBSVTOIN 08-10 13:00 → 3RD-ICU 08-10 18:40 → 4TH 08-17 16:26
PROVIDERS: ADMIT Hospitalist; ATTEND Hospitalist
PROC: 4A033R1 Measurement of Arterial Saturation, Peripheral, Percutaneous Approach (ICD-10-PCS; principal; 2025-08-11)
PROC: 3E033XZ Introduction of Vasopressor into Peripheral Vein, Percutaneous Approach (ICD-10-PCS; 2025-08-11)
PROC: 5A0955A Assistance with Respiratory Ventilation, Greater than 96 Consecutive Hours, High Flow/Velocity Cannula (ICD-10-PCS; 2025-08-11)
DX: I11.0 Hypertensive heart disease with heart failure (principal); I50.31 Acute diastolic (congestive) heart failure; I21.A1 Myocardial infarction type 2; R57.1 Hypovolemic shock; J96.01 Acute respiratory failure with hypoxia; I48.20 Chronic atrial fibrillation, unspecified; M48.54XA Collapsed vertebra, not elsewhere classified, thoracic region, initial encounter for fracture; E87.3 Alkalosis; K21.9 Gastro-esophageal reflux disease without esophagitis; D69.6 Thrombocytopenia, unspecified; I95.9 Hypotension, unspecified; F32.A Depression, unspecified; G89.4 Chronic pain syndrome; I25.10 Atherosclerotic heart disease of native coronary artery without angina pectoris; T46.2X5A Adverse effect of other antidysrhythmic drugs, initial encounter; R00.1 Bradycardia, unspecified; Z79.01 Long term (current) use of anticoagulants; Z79.899 Other long term (current) drug therapy; Z86.711 Personal history of pulmonary embolism; Z90.710 Acquired absence of both cervix and uterus
CPT/HCPCS: 36415; 36569; 36600; 71045; 71275; 74177; 80048; 80053; 82533; 82803; 82805; 83605; 83690; 83735; 84100; 84443; 84484; 85025; 93005; 93306; 94660; 96361; 96372; 96374; 96375; 97110; 97116; 97161; 97530; 99285; A4216; G0378; J0696; J1650; J1938; J2270; J2405; J2470; J2543; J2550; J2919; J3475; J7030; J7040; J7042; J7060; J7120; J7512; P9047; Q9967